=== PATIENT | female | born 1965 | race Caucasian/White ===

== ENCOUNTER 2016-10-07 19:24 | Inpatient (IN) | payer MEDICARE ==
[2016-10-07] MEDS ORDERED: Zofran 4 MG/2 ML VIAL IV ONE (19:57)
[2016-10-07] MEDS ORDERED: Hydromorphone 1 mg/ml Ampule IV ONE (20:00)
[2016-10-07] MEDS ORDERED: Sodium Chloride 0.9% 1000 ML 1,000 ML IV STA (20:01)
[2016-10-07] MEDS ORDERED: PROTONIX 40 MG IV IV ONE ×2 (20:01→20:10)
[2016-10-07] MEDS ORDERED: Hydromorphone 1 mg/ml Ampule ONE (20:05)
[2016-10-07] MEDS ORDERED: Zofran 4 MG/2 ML VIAL ONE (20:05)
[2016-10-07] MEDS ORDERED: Sodium Chloride 0.9% 1000 ML 1,000 ML ONE (20:10)
[2016-10-07 20:29] LABS: BASOPHIL % 0.2 % (0.0-0.4); Eosinophil % 1.1 % (0.00-5.0); Granulocytes % 78.9 % (36.0-66.0); Lymphocytes % 14.8 % (24.0-44.0); Mean Cell Volume 95.2 fl (78-100); Mean Corpuscular Hemoglobin 31.9 pg (26-32); Mean Platelet Volume 10.1 fl (6-9.5); Platelet Count 305 K/mm3 (150-450); Red Blood Count 5.17 M/mm3 (4.1-5.4)
[2016-10-07 20:57] LABS: ALBUMIN 4.6 g/dL (3.4-5.0); ALKALINE PHOSPHATASE 99 U/L (46-116); ANION GAP 14.5 MEQ/L (5-15); BILIRUBIN,TOTAL 0.4 mg/dL (0.2-1.0); BLOOD UREA NITROGEN 13 mg/dL (9-20); CHLORIDE 103 mEq/L (98-107); Carbon Dioxide 26.5 mEq/L (21-32); Glucose 112 MG/DL (70-110); LIPASE 189 U/L (73-393); Potassium 3.8 mEq/L (3.5-5.1); SGOT/AST 24 U/L (15-37); SGPT/ALT 15 U/L (12-78); SODIUM 140 mEq/L (136-145); Total Protein 8.4 gm/dL (6.4-8.2)
--- NOTE | 2016-10-07 22:03 | ERPHSYRPT ---
- History of Present Illness Time Seen by Provider: 10/07/16 19:30 Historian: patient, family Exam Limitations: no limitations Patient Subjective Stated Complaint: pt states she ate chicken nuggets at [facility] and has been having pain and vomiting since Triage Nursing Assessment: pt alert and oriented, answers questions approp. pt ambulatory with steady gait noted. respirations nonlabored with lungs cta. skin pink warm and dry. pt very restless in bed. abd soft and tender. bowel sounds present in all 4 quads. Physician History: No bowel movement reported x 3 days. Last meal was at [facility] 1200, then given a bottle of Mg Citrate-like drink at 1600. NPO since. Timing/Duration: hour(s) (7.5 ) Activities at Onset: other (ate at [facility] prior to Sx onset) Quality: cramping, sharpness Abdominal Pain Onset Location: periumbilical Pain Radiation: other (diffuse) Severity of Pain-Max: severe Severity of Pain-Current: severe Modifying Factors: Improves With: vomiting Previous symptoms: no prior history Allergies/Adverse Reactions: morphine Adverse Reaction (Verified 10/07/16 19:47) Nausea Home Medications: Duloxetine HCl [Cymbalta] 90 mg PO DAILY 10/07/16 [History] Tapentadol HCl [Nucynta ER] 250 mg PO BID 10/07/16 [History] Tizanidine HCl 4 mg [Zanaflex 4 MG] 4 mg PO BID 10/07/16 [History] Topiramate 100 mg [Topamax 100 MG] 100 mg PO BID 10/07/16 [History] Hx Tetanus, Diphtheria Vaccination/Date Given: No ([place]) Hx Influenza Vaccination/Date Given: No Hx Pneumococcal Vaccination/Date Given: No Immunizations Up to Date: No - Review of Systems Constitutional: No Symptoms Eyes: No Symptoms Ears, Nose, & Throat: No Symptoms Respiratory: No Symptoms Cardiac: No Symptoms Abdominal/Gastrointestinal: Abdominal Pain, Nausea, Vomiting, No Diarrhea Genitourinary Symptoms: No Symptoms Musculoskeletal: No Symptoms Skin: No Symptoms Neurological: No Symptoms Psychological: No Symptoms Endocrine: No Symptoms Hematologic/Lymphatic: No Symptoms - Past Medical History Pertinent Past Medical History: Yes Neurological History: Migraines Psycho-Social History: Depression Female Reproductive Disorders: Cervical Cancer - Past Surgical History Past Surgical History: Yes Gastrointestinal: Appendectomy, Cholecystectomy Female Surgical History: Hysterectomy - Social History Smoking Status: Current every day smoker How long have you smoked: 32 Exposure to second hand smoke: No Drug Use: none Patient Lives Alone: No - Female History Hx Last Menstrual Period: hyster - Nursing Vital Signs Nursing Vital Signs: Initial Vital Signs Temperature 97.2 F Temperature Source Oral Pulse Rate 74 Respiratory Rate 24 Blood Pressure [Right Arm] 132/96 Pain Intensity 10 - Physical Exam General Appearance: severe distress Eye Exam: eyes nml inspection Ears, Nose, Throat Exam: normal ENT inspection, pharynx normal Neck Exam: normal inspection, non-tender, supple, full range of motion Respiratory Exam: normal breath sounds, lungs clear, airway intact Cardiovascular Exam: regular rate/rhythm, normal heart sounds, normal peripheral pulses Gastrointestinal/Abdomen Exam: soft, normal bowel sounds, tenderness (diffuse), No distention Back Exam: normal inspection, normal range of motion Extremity Exam: normal inspection, normal range of motion, pelvis stable Neurologic Exam: alert, oriented x 3, cooperative Skin Exam: normal color, warm, dry SpO2 Interpretation: normal SpO2: 100 Oxygen Delivery: Room Air - Course Nursing assessment & vital signs reviewed: Yes - CT Exams Abdomen/Pelvis CT Interpretation: Discussed w/radiologist, Tele-radiologist Report (Findings compatible with SBO with bowel loops measuring up to 4 cm. Transition point in mid lower abd associated with twisting mesentery compatible with [id number] loop SBO.) Ordered Tests: Active Orders 24 hr Category Date Time Status IV Insertion STAT Care 10/07/16 20:01 Active NPO (ED) STAT Care 10/07/16 20:01 Active ABDOMEN AND PELVIS W CONTRAST [CT] Stat Exams 10/07/16 20:02 Taken CBC W DIFF Stat Lab 10/07/16 20:10 Completed CMP Stat Lab 10/07/16 20:10 Completed LIPASE Stat Lab 10/07/16 20:10 Completed Urine Triage Profile Stat Lab 10/07/16 20:01 Uncollected Medication Summary Discontinued Medications Generic Name Dose Route Start Last Admin Trade Name Freq PRN Reason Stop Dose Admin Hydromorphone HCl 1 mg 10/07/16 20:00 10/07/16 20:06 Hydromorphone 1 Mg/Ml Ampule IV 10/07/16 20:01 1 mg STAT ONE Administration Hydromorphone HCl Confirm 10/07/16 20:05 Hydromorphone 1 Mg/Ml Ampule Administered 10/07/16 20:06 Dose 1 mg .ROUTE .STK-MED ONE Sodium Chloride 1,000 mls @ 999 mls/hr 10/07/16 20:01 10/07/16 20:11 Sodium Chloride 0.9% 1000 Ml IV 10/07/16 21:01 999 mls/hr .Q1H1M STA Administration Sodium Chloride Confirm 10/07/16 20:10 Sodium Chloride 0.9% 1000 Ml Administered 10/07/16 20:11 Dose 1,000 mls @ ud .ROUTE .STK-MED ONE Ondansetron HCl 4 mg 10/07/16 19:57 10/07/16 20:06 Zofran 4 Mg/2 Ml Vial IV 10/07/16 19:58 4 mg STAT ONE Administration Ondansetron HCl Confirm 10/07/16 20:05 Zofran 4 Mg/2 Ml Vial Administered 10/07/16 20:06 Dose 4 mg .ROUTE .STK-MED ONE Pantoprazole Sodium 40 mg 10/07/16 20:01 10/07/16 20:14 Protonix 40 Mg Iv IV 10/07/16 20:02 40 mg STAT ONE Administration Pantoprazole Sodium Confirm 10/07/16 20:10 Protonix 40 Mg Iv Administered 10/07/16 20:11 Dose 40 mg IV .STK-MED ONE Lab/Rad Data: Laboratory Result Diagrams 10/07/16 20:10 10/07/16 20:10 Laboratory Results 10/07/16 10/07/16 Range/Units 20:10 20:10 WBC 14.0 H (4.0-10.5) K/mm3 RBC 5.17 (4.1-5.4) M/mm3 Hgb 16.5 H (12.0-16.0) gm/dl Hct 49.2 H (35-47) % MCV 95.2 (78-100) fl MCH 31.9 (26-32) pg MCHC 33.5 (32-36) g/dl RDW 13.0 (11.5-14.0) % Plt Count 305 (150-450) K/mm3 MPV 10.1 H (6-9.5) fl Gran % 78.9 H (36.0-66.0) % Lymphocytes % 14.8 L (24.0-44.0) % Monocytes % 5.0 (0.0-12.0) % Eosinophils % 1.1 (0.00-5.0) % Basophils % 0.2 (0.0-0.4) % Basophils # 0.03 (0-0.4) Sodium 140 (136-145) mEq/L Potassium 3.8 (3.5-5.1) mEq/L Chloride 103 (98-107) mEq/L Carbon Dioxide 26.5 (21-32) mEq/L Anion Gap 14.5 (5-15) MEQ/L BUN 13 (9-20) mg/dL Creatinine 0.85 (0.55-1.30) mg/dl Estimated GFR > 60 ML/MIN Glucose 112 H (70-110) MG/DL Calcium 10.2 H (8.5-10.1) mg/dL Total Bilirubin 0.4 (0.2-1.0) mg/dL AST 24 (15-37) U/L ALT 15 (12-78) U/L Alkaline Phosphatase 99 (46-116) U/L Serum Total Protein 8.4 H (6.4-8.2) gm/dL Albumin 4.6 (3.4-5.0) g/dL Lipase 189 (73-393) U/L - Progress Progress: pain not gone completely Discussed with : Nestor (with recs for NG and admit to medicine), Olena ( accepts to floor.) Will see patient in: hospital (full admit) Counseled pt/family regarding: lab results, diagnosis, need for follow-up, rad results - Departure Time of Disposition: 22:15 Departure Disposition: In-patient Admission Clinical Impression: Small bowel obstruction Condition: Stable Critical Care Time: Yes Critical Care Time(excluding separately billable procedures): 30-74 minutes
[2016-10-08] MEDS: Sodium Chloride 0.9% W/ 20 mEq KCl/LITER 1,000 ML IV SCH ×3 (00:53→22:23)
[2016-10-08] MEDS: DILAUDID 2 MG INJECTION IV PRN (00:56)
[2016-10-08] MEDS: Zofran 4 MG/2 ML VIAL IV PRN ×2 (06:03→11:36)
[2016-10-08] MEDS ORDERED: Phenergan 25 MG INJ IV PRN (07:46)
[2016-10-08] MEDS ORDERED: Phenergan 25 MG INJ IM PRN (07:47)
[2016-10-08] MEDS: PROTONIX 40 MG IV IV SCH (08:04)
--- NOTE | 2016-10-08 09:16 | XRAY ---
Indication: Lower abdominal pain, nausea, vomiting, and elevated WBC. Multiple contiguous axial images obtained through the abdomen and pelvis using 80 cc Isovue 370 contrast only. Comparison: None Lung bases essentially clear. Heart is not enlarged. Stomach and small bowel loops are moderately fluid distended with fluid leveling to the level of the lower mid abdomen with some twisting of the mesentery. Small bowel distention up to 4 cm. The more distal small bowel loops appear decompressed with normal colonic bowel gas. Findings favor partial small bowel obstruction. No free fluid/air. Previous cholecystectomy. Remaining liver, pancreas, spleen, adrenal glands, kidneys, ureters, and bladder appear unremarkable. Minimal aortoiliac calcifications. No AAA or pathologic retroperitoneal lymphadenopathy. Osseous structures intact with minimal lumbar degenerative changes. Old left 11th/12th rib fractures. Impression: CT findings as detailed favoring partial distal small bowel obstruction. Comment: Preliminary interpretation was made by [facility]. No discrepancy. CT DI 11.96
--- NOTE | 2016-10-08 09:18 | XRAY ---
Indication: NG tube placement. Comparison: None KUB centered at the thoracolumbar level demonstrates NG tube tip in the left upper quadrant abdomen presumed in the stomach.
[2016-10-08 11:25] LABS: Mean Cell Volume 97.3 fl (78-100); Mean Platelet Volume 9.4 fl (6-9.5); Platelet Count 278 K/mm3 (150-450); Red Blood Count 4.47 M/mm3 (4.1-5.4); White Blood Count 9.2 K/mm3 (4.0-10.5)
[2016-10-08 12:35] LABS: Mean Cell Volume 97.8 fl (78-100); Mean Corpuscular Hemoglobin 31.8 pg (26-32); Mean Platelet Volume 9.5 fl (6-9.5); Platelet Count 280 K/mm3 (150-450); Red Blood Count 4.49 M/mm3 (4.1-5.4); Red Cell Distribution Width 13.1 % (11.5-14.0); White Blood Count 9.1 K/mm3 (4.0-10.5)
[2016-10-08 12:36] LABS: ANION GAP 12.1 MEQ/L (5-15); BLOOD UREA NITROGEN 10 mg/dL (9-20); CHLORIDE 108 mEq/L (98-107); Carbon Dioxide 26.4 mEq/L (21-32); Glucose 121 MG/DL (70-110); Potassium 4.2 mEq/L (3.5-5.1); SODIUM 142 mEq/L (136-145)
--- NOTE | 2016-10-08 13:16 | XRAY ---
Indication: Follow-up NG tube placement for small bowel obstruction. Comparison: KUB performed earlier in the day. 2 views of the abdomen again demonstrates NG tube tip in the stomach. There are a few asynchronous small bowel air-fluid leveling in the left midabdomen with distal rectal bowel gas favoring known partial obstruction. No free air. Large amount of contrast in the urinary bladder from recent CT study. Stable cholecystectomy clips and right lung base calcified granuloma. Impression: Midabdomen asynchronous small bowel air-fluid leveling with distal colonic bowel gas favoring known partial obstruction. Stable NG tube tip in the stomach.
[2016-10-08 13:36] LABS: ANION GAP 12.3 MEQ/L (5-15); BLOOD UREA NITROGEN 10 mg/dL (9-20); CHLORIDE 108 mEq/L (98-107); Carbon Dioxide 26.5 mEq/L (21-32); Glucose 121 MG/DL (70-110); Potassium 4.3 mEq/L (3.5-5.1); SODIUM 143 mEq/L (136-145)
[2016-10-09 06:03] LABS: Mean Cell Volume 99.7 fl (78-100); Mean Corpuscular Hemoglobin 32.3 pg (26-32); Mean Platelet Volume 9.4 fl (6-9.5); Platelet Count 267 K/mm3 (150-450); Red Blood Count 3.99 M/mm3 (4.1-5.4); Red Cell Distribution Width 13.3 % (11.5-14.0)
[2016-10-09 06:23] LABS: ANION GAP 12.8 MEQ/L (5-15); BLOOD UREA NITROGEN 14 mg/dL (9-20); CHLORIDE 113 mEq/L (98-107); Carbon Dioxide 24.2 mEq/L (21-32); Glucose 86 MG/DL (70-110); Potassium 4.5 mEq/L (3.5-5.1); SODIUM 146 mEq/L (136-145)
[2016-10-09] MEDS: Sodium Chloride 0.9% W/ 20 mEq KCl/LITER 1,000 ML IV SCH ×2 (07:21→16:28)
--- NOTE | 2016-10-09 08:07 | CONS ---
CONSULT DATE: 10/08/2016 HISTORY: This is a 51 year-old female who presented to the emergency room with abdominal pain. My partner was consulted for this and I am seeing the patient for him today. The patient has some nausea and vomiting. She has had decreased bowel function. She did not pass gas today. She did have a bowel movement three days ago but she did not have a bowel movement today. She states her abdominal pain is more severe in her upper abdomen and occasionally she had some back pain but she does have chronic back pain at baseline. She has been nauseous and vomiting bilious fluid. She had a NG overnight very briefly only for about 20 minutes and then she said it fell out and she did not want it put back in so she does not have a NG at this moment. Currently she is not vomiting but she did vomit earlier this morning. PAST MEDICAL HISTORY: Chronic neck and back pain. PAST SURGICAL HISTORY: Hysterectomy, appendectomy, cholecystectomy, neck surgery. MEDICATIONS: Topiramate, tizanidine, Nucynta, Cymbalta. ALLERGIES: NKDA. SOCIAL HISTORY: Positive tobacco use. No alcohol use. FAMILY HISTORY: Mom had an unknown cancer. PHYSICAL EXAMINATION: Vital signs are all stable. She is afebrile. Her heart rate is normal. GENERAL: No acute distress. CVS: Regular rate and rhythm. PULMONARY: Non-labored respirations. ABDOMEN: Soft, very minimally distended, tender to palpation left upper quadrant and mid abdomen. She is not tender in her right lower quadrant at all and she is not tender in her right upper quadrant at all. There is no rebound. There is no guarding. EXTREMITIES: Normal. LAB DATA AND TESTS: White blood cell count is elevated at 14, hemoglobin 16.5, PLT count 305,000 and creatinine 0.85. Bilirubin, liver function tests and lipase are within normal limits. CT scan showed concern for a partial small bowel obstruction with distal bowel decompression and proximal bowel dilation. There is no free air. Abdominal x-ray from earlier this morning showed good placement of the NG tube but this has fallen out. ASSESSMENT AND PLAN: This is a 51 year-old female who has been admitted for partial small bowel obstruction, abdominal pain, nausea and vomiting. At this time she really has not had a good trial of conservative treatments because her NG tube fell out very soon after it was placed. I did discuss with the patient the importance of placing an NG tube because many people with bowel obstructions can be treated conservatively and can have quite significant improvement. She has agreed and we will plan to place an NG tube right now and we will keep it to low intermittent suction, recheck her abdominal x-ray as well. She has not had labs during the day today and so we will repeat her laboratory studies today and follow the trend and repeat them as well in the morning. We will re-evaluate her clinically in the morning. I did discuss with her should her symptoms worsen she may need to have surgery sooner. Otherwise, we will continue to try conservative treatment with IV fluids, NG tube and bowel rest. I did discuss the case with my partner as well. Thank you for the consultation.
[2016-10-09] MEDS: PROTONIX 40 MG IV IV SCH (08:24)
--- NOTE | 2016-10-09 08:29 | PCM.HP ---
History of Present Illness - Chief Complaint Chief Complaint: c/o abdominal pain for 1 day Date: 10/08/16 History of Present Illness: is a 51 year old female.started having abdominal pain since last evening. no fever, c/o nausea, vomiting - Review of Systems Constitutional: No Fever, No Chills Eyes: No Symptoms Ears, Nose, & Throat: No Symptoms Respiratory: No Cough, No Short Of Breath Cardiac: No Chest Pain, No Edema, No Syncope Abdominal/Gastrointestinal: Abdominal Pain, Nausea, Vomiting, No Diarrhea Genitourinary Symptoms: No Dysuria Musculoskeletal: No Back Pain, No Neck Pain Skin: No Rash Neurological: No Dizziness, No Focal Weakness, No Sensory Changes Psychological: No Symptoms Endocrine: No Symptoms Hematologic/Lymphatic: No Symptoms Immunological/Allergic: No Symptoms Medications & Allergies Home Medications: Home Medication List Duloxetine HCl [Cymbalta] 90 mg PO DAILY 10/07/16 [History Confirmed 10/07/16] Tapentadol HCl [Nucynta ER] 250 mg PO BID 10/07/16 [History Confirmed 10/07/16] Tizanidine HCl 4 mg [Zanaflex 4 MG] 4 mg PO BID 10/07/16 [History Confirmed 10/07/16] Topiramate 100 mg [Topamax 100 MG] 100 mg PO BID 10/07/16 [History Confirmed 10/07/16] Allergies/Adverse Reactions: Allergies Allergy/AdvReac Type Severity Reaction Status Date / Time morphine AdvReac Nausea Verified 10/07/16 19:47 - Past Medical History Past Medical History: Yes Neurological History: Migraines ENT History: No Pertinent History Cardiac History: No Pertinent History Respiratory History: No Pertinent History Endocrine Medical History: No Pertinent History Musculoskelatal History: No Pertinent History GI Medical History: No Pertinent History History: No Pertinent History Pyscho-Social History: Depression Reproductive Disorders: Cervical Cancer - Female History Hx Last Menstrual Period: hyster Are you now?: No - Past Surgical History Past Surgical History: Yes Neuro Surgical History: No Pertinent History GI Surgical History: Appendectomy, Cholecystectomy Musculskeletal Surgical Hx: Other Female Surgical History: Hysterectomy Other Surgical History: neck surgery - Social History Smoking Status: Current every day smoker How long have you smoked: 32 Exposure to second hand smoke: Yes Alcohol: None Drug Use: none - Physical Exam Vital Signs: Vital Signs - 24 hr Temp Pulse Resp BP Pulse Ox 10/09/16 08:00 99.4 F 74 18 109/59 94 L 10/09/16 04:00 98.8 F 71 13 117/60 93 L 10/09/16 00:00 98.1 F 56 L 13 111/67 96 10/08/16 20:00 99.3 F 77 14 113/64 95 10/08/16 16:00 98.6 F 68 18 111/64 96 10/08/16 11:54 98.6 F 68 18 123/70 96 General Appearance: no apparent distress, alert Neurologic Exam: alert, oriented x 3, cooperative, normal mood/affect, nml cerebellar function, nml station & gait, sensation nml, No motor deficits Eye Exam: PERRL/EOMI, eyes nml inspection Ears, Nose, Throat Exam: normal ENT inspection, TMs normal, pharynx normal, moist mucous membranes Neck Exam: normal inspection, non-tender, supple, full range of motion Respiratory Exam: normal breath sounds, lungs clear, No respiratory distress Cardiovascular Exam: regular rate/rhythm, normal heart sounds, normal peripheral pulses Gastrointestinal/Abdomen Exam: tenderness, distention, guarding, No mass Back Exam: normal inspection, normal range of motion, No CVA tenderness, No vertebral tenderness Extremity Exam: normal inspection, normal range of motion, pelvis stable Skin Exam: normal color, warm, dry, No rash Lymphatic Exam: No adenopathy Results - Labs Lab/Micro Results: Lab Results-Last 24 Hours 10/08/16 10/08/16 10/08/16 Range/Units 11:22 11:22 12:00 WBC 9.2 9.1 (4.0-10.5) K/mm3 RBC 4.47 4.49 (4.1-5.4) M/mm3 Hgb 14.3 14.3 (12.0-16.0) gm/dl Hct 43.5 43.9 (35-47) % MCV 97.3 97.8 (78-100) fl MCH 32.0 31.8 (26-32) pg MCHC 32.9 32.6 (32-36) g/dl RDW 13.0 13.1 (11.5-14.0) % Plt Count 278 280 (150-450) K/mm3 MPV 9.4 9.5 (6-9.5) fl Sodium 143 (136-145) mEq/L Potassium 4.3 (3.5-5.1) mEq/L Chloride 108 H (98-107) mEq/L Carbon Dioxide 26.5 (21-32) mEq/L Anion Gap 12.3 (5-15) MEQ/L BUN 10 (9-20) mg/dL Creatinine 0.79 (0.55-1.30) mg/dl Estimated GFR > 60 ML/MIN Glucose 121 H (70-110) MG/DL Calcium 9.1 (8.5-10.1) mg/dL 10/08/16 10/09/16 10/09/16 Range/Units 12:00 05:50 05:50 WBC 14.0 H (4.0-10.5) K/mm3 RBC 3.99 L (4.1-5.4) M/mm3 Hgb 12.9 (12.0-16.0) gm/dl Hct 39.8 (35-47) % MCV 99.7 (78-100) fl MCH 32.3 H (26-32) pg MCHC 32.4 (32-36) g/dl RDW 13.3 (11.5-14.0) % Plt Count 267 (150-450) K/mm3 MPV 9.4 (6-9.5) fl Sodium 142 146 H (136-145) mEq/L Potassium 4.2 4.5 (3.5-5.1) mEq/L Chloride 108 H 113 H (98-107) mEq/L Carbon Dioxide 26.4 24.2 (21-32) mEq/L Anion Gap 12.1 12.8 (5-15) MEQ/L BUN 10 14 (9-20) mg/dL Creatinine 0.77 0.73 (0.55-1.30) mg/dl Estimated GFR > 60 > 60 ML/MIN Glucose 121 H 86 (70-110) MG/DL Calcium 9.0 8.5 (8.5-10.1) mg/dL - Radiology Impressions Radiology Exams & Impressions: Radiology Procedures Category Date Time Status ABDOMEN 2 VIEW Routine Exams 10/08/16 12:30 Completed KUB Urgent Exams 10/08/16 01:20 Completed Assessment/Plan (1) Abdominal pain Current Visit: Yes Status: Acute Code(s): R10.9 - UNSPECIFIED ABDOMINAL PAIN (2) Small bowel obstruction Current Visit: Yes Status: Acute Code(s): K56.69 - OTHER INTESTINAL OBSTRUCTION (3) Vomiting Current Visit: Yes Status: Acute Code(s): R11.10 - VOMITING, UNSPECIFIED
[2016-10-09] MEDS ORDERED: CHLORASEPTIC SPRAY 180 ML PO PRN (08:30)
--- NOTE | 2016-10-09 08:31 | PCM.NOTE ---
Date and Time: 10/09/16829 Subjective Assessment: doing better - Review of Systems Constitutional: No Fever, No Chills Eyes: No Symptoms Ears, Nose, & Throat: No Symptoms Respiratory: No Cough, No Short Of Breath Cardiac: No Chest Pain, No Edema, No Syncope Abdominal/Gastrointestinal: Abdominal Pain, Nausea, Diarrhea, No Vomiting Genitourinary Symptoms: No Dysuria Musculoskeletal: No Back Pain, No Neck Pain Skin: No Rash Neurological: No Dizziness, No Focal Weakness, No Sensory Changes Psychological: No Symptoms Endocrine: No Symptoms Hematologic/Lymphatic: No Symptoms Immunological/Allergic: No Symptoms Objective Exam General Appearance: no apparent distress, alert Neurologic Exam: alert, oriented x 3, cooperative, normal mood/affect, nml cerebellar function, sensation nml, No motor deficits Skin Exam: normal color, warm, dry Eye Exam: PERRL, EOMI, eyes nml inspection Ears, Nose, Throat Exam: normal ENT inspection, pharynx normal, moist mucous membranes Neck Exam: normal inspection, non-tender, supple, full range of motion Respiratory Exam: normal breath sounds, lungs clear, No respiratory distress Cardiovascular Exam: regular rate/rhythm, normal heart sounds Gastrointestinal/Abdomen Exam: distention, No tenderness, No mass, No rebound Extremity Exam: normal inspection, normal range of motion Back Exam: normal inspection, normal range of motion, No CVA tenderness, No vertebral tenderness Pelvic Exam: deferred Rectal Exam: deferred OBJECTIVE DATA Vital Signs: Vital Signs - 24 hr Temp Pulse Resp BP Pulse Ox 10/09/16 08:00 99.4 F 74 18 109/59 94 L 10/09/16 04:00 98.8 F 71 13 117/60 93 L 10/09/16 00:00 98.1 F 56 L 13 111/67 96 10/08/16 20:00 99.3 F 77 14 113/64 95 10/08/16 16:00 98.6 F 68 18 111/64 96 10/08/16 11:54 98.6 F 68 18 123/70 96 Pain Assessment - Last Documented Pain Intensity 9 Pain Scale Used [facility] Intake and Output: Intake & Output 10/06/16 10/07/16 10/08/16 10/09/16 11:59 11:59 11:59 11:59 Intake Total 2207 Output Total 1000 2000 Balance -1000 207 Weight 52.844 kg Lab Results: Lab Results-Last 24 Hours 10/08/16 10/08/16 10/08/16 Range/Units 11:22 11:22 12:00 WBC 9.2 9.1 (4.0-10.5) K/mm3 RBC 4.47 4.49 (4.1-5.4) M/mm3 Hgb 14.3 14.3 (12.0-16.0) gm/dl Hct 43.5 43.9 (35-47) % MCV 97.3 97.8 (78-100) fl MCH 32.0 31.8 (26-32) pg MCHC 32.9 32.6 (32-36) g/dl RDW 13.0 13.1 (11.5-14.0) % Plt Count 278 280 (150-450) K/mm3 MPV 9.4 9.5 (6-9.5) fl Sodium 143 (136-145) mEq/L Potassium 4.3 (3.5-5.1) mEq/L Chloride 108 H (98-107) mEq/L Carbon Dioxide 26.5 (21-32) mEq/L Anion Gap 12.3 (5-15) MEQ/L BUN 10 (9-20) mg/dL Creatinine 0.79 (0.55-1.30) mg/dl Estimated GFR > 60 ML/MIN Glucose 121 H (70-110) MG/DL Calcium 9.1 (8.5-10.1) mg/dL 10/08/16 10/09/16 10/09/16 Range/Units 12:00 05:50 05:50 WBC 14.0 H (4.0-10.5) K/mm3 RBC 3.99 L (4.1-5.4) M/mm3 Hgb 12.9 (12.0-16.0) gm/dl Hct 39.8 (35-47) % MCV 99.7 (78-100) fl MCH 32.3 H (26-32) pg MCHC 32.4 (32-36) g/dl RDW 13.3 (11.5-14.0) % Plt Count 267 (150-450) K/mm3 MPV 9.4 (6-9.5) fl Sodium 142 146 H (136-145) mEq/L Potassium 4.2 4.5 (3.5-5.1) mEq/L Chloride 108 H 113 H (98-107) mEq/L Carbon Dioxide 26.4 24.2 (21-32) mEq/L Anion Gap 12.1 12.8 (5-15) MEQ/L BUN 10 14 (9-20) mg/dL Creatinine 0.77 0.73 (0.55-1.30) mg/dl Estimated GFR > 60 > 60 ML/MIN Glucose 121 H 86 (70-110) MG/DL Calcium 9.0 8.5 (8.5-10.1) mg/dL Radiology Exams: Radiology Procedures Category Date Time Status ABDOMEN 2 VIEW Routine Exams 10/08/16 12:30 Completed KUB Urgent Exams 10/08/16 01:20 Completed Assessment/Plan (1) Abdominal pain Current Visit: Yes Status: Acute Qualifiers: Abdominal location: generalized Qualified Code(s): R10.84 - Generalized abdominal pain Code(s): R10.9 - UNSPECIFIED ABDOMINAL PAIN (2) Small bowel obstruction Current Visit: Yes Status: Acute Code(s): K56.69 - OTHER INTESTINAL OBSTRUCTION (3) Vomiting Current Visit: Yes Status: Acute Qualifiers: Vomiting type: unspecified Vomiting Intractability: unspecified Nausea presence: unspecified Qualified Code(s): R11.10 - Vomiting, unspecified Code(s): R11.10 - VOMITING, UNSPECIFIED
[2016-10-09] MEDS: DILAUDID 2 MG INJECTION IV PRN ×2 (16:40→23:28)
[2016-10-10] MEDS: Sodium Chloride 0.9% W/ 20 mEq KCl/LITER 1,000 ML IV SCH ×2 (01:39→12:42)
[2016-10-10] MEDS: PROTONIX 40 MG IV IV SCH (09:11)
[2016-10-10] MEDS: DILAUDID 2 MG INJECTION IV PRN (13:44)
[2016-10-11] MEDS: Sodium Chloride 0.9% W/ 20 mEq KCl/LITER 1,000 ML IV SCH (00:05)
[2016-10-11] MEDS: DILAUDID 2 MG INJECTION IV PRN ×3 (01:03→22:51)
[2016-10-11 05:35] LABS: Mean Cell Volume 96.1 fl (78-100); Mean Platelet Volume 9.5 fl (6-9.5); Platelet Count 238 K/mm3 (150-450); Red Blood Count 3.88 M/mm3 (4.1-5.4); Red Cell Distribution Width 12.1 % (11.5-14.0); White Blood Count 11.2 K/mm3 (4.0-10.5)
[2016-10-11 05:49] LABS: Mean Corpuscular Hemoglobin 31.9 pg (26-32)
[2016-10-11 05:54] LABS: ANION GAP 16.6 MEQ/L (5-15); BLOOD UREA NITROGEN 8 mg/dL (9-20); CHLORIDE 103 mEq/L (98-107); Carbon Dioxide 21.6 mEq/L (21-32); Glucose 56 MG/DL (70-110); Potassium 4.1 mEq/L (3.5-5.1); SODIUM 137 mEq/L (136-145)
[2016-10-11] MEDS: DEXTROSE 5% -NACL 0.9% 1000 ML + KCl 20 MEQ 1,000 ML IV SCH ×3 (06:33→20:27)
--- NOTE | 2016-10-11 08:11 | PCM.NOTE ---
Date and Time: 10/11/16809 Subjective Assessment: doing little better - Review of Systems Constitutional: No Fever, No Chills Eyes: No Symptoms Ears, Nose, & Throat: No Symptoms Respiratory: No Cough, No Short Of Breath Cardiac: No Chest Pain, No Edema, No Syncope Abdominal/Gastrointestinal: Abdominal Pain, No Nausea, No Vomiting, No Diarrhea Genitourinary Symptoms: No Dysuria Musculoskeletal: No Back Pain, No Neck Pain Skin: No Rash Neurological: No Dizziness, No Focal Weakness, No Sensory Changes Psychological: No Symptoms Endocrine: No Symptoms Hematologic/Lymphatic: No Symptoms Immunological/Allergic: No Symptoms Objective Exam General Appearance: no apparent distress, alert Neurologic Exam: alert, oriented x 3, cooperative, normal mood/affect, nml cerebellar function, sensation nml, No motor deficits Skin Exam: normal color, warm, dry Eye Exam: PERRL, EOMI, eyes nml inspection Ears, Nose, Throat Exam: normal ENT inspection, pharynx normal, moist mucous membranes Neck Exam: normal inspection, non-tender, supple, full range of motion Respiratory Exam: normal breath sounds, lungs clear, No respiratory distress Cardiovascular Exam: regular rate/rhythm, normal heart sounds Gastrointestinal/Abdomen Exam: soft, No normal bowel sounds, No tenderness, No distention, No mass Extremity Exam: normal inspection, normal range of motion Back Exam: normal inspection, normal range of motion, No CVA tenderness, No vertebral tenderness Pelvic Exam: deferred Rectal Exam: deferred OBJECTIVE DATA Vital Signs: Vital Signs - 24 hr Temp Pulse Resp BP BP Pulse Ox 10/11/16 04:00 98.4 F 76 16 118/62 98 10/10/16 23:55 99.1 F 67 14 129/67 98 10/10/16 19:58 99.3 F 79 16 120/65 97 10/10/16 17:33 98.4 F 74 18 122/63 94 L 10/10/16 15:45 98.4 F 74 18 122/63 94 L 10/10/16 12:00 98.1 F 75 17 121/63 94 L Pain Assessment - Last Documented Pain Intensity 4 Pain Scale Used 0-10 Pain Scale Intake and Output: Intake & Output 10/08/16 10/09/16 10/10/16 10/11/16 11:59 11:59 11:59 11:59 Intake Total 2207 2218 2461 Output Total 1000 1999 700 1200 Balance -3253 763 1686 1261 Weight 52.844 kg 52.844 kg 52.844 kg Lab Results: Lab Results-Last 24 Hours 10/11/16 10/11/16 Range/Units 05:18 05:18 WBC 11.2 H (4.0-10.5) K/mm3 RBC 3.88 L (4.1-5.4) M/mm3 Hgb 12.4 (12.0-16.0) gm/dl Hct 37.3 (35-47) % MCV 96.1 (78-100) fl MCH 31.9 (26-32) pg MCHC 33.2 (32-36) g/dl RDW 12.1 (11.5-14.0) % Plt Count 238 (150-450) K/mm3 MPV 9.5 (6-9.5) fl Sodium 137 (136-145) mEq/L Potassium 4.1 (3.5-5.1) mEq/L Chloride 103 (98-107) mEq/L Carbon Dioxide 21.6 (21-32) mEq/L Anion Gap 16.6 H (5-15) MEQ/L BUN 8 L (9-20) mg/dL Creatinine 0.63 (0.55-1.30) mg/dl Estimated GFR > 60 ML/MIN Glucose 56 L (70-110) MG/DL Calcium 8.3 L (8.5-10.1) mg/dL Radiology Exams: Radiology Procedures Category Date Time Status ABDOMEN 2 VIEW Routine Exams 10/11/16 08:00 Ordered Multi-Disciplinary Progress Notes: Multi-Disciplinary Progress Notes 10/10/16 09:25 (created 10/10/16 11:06) Case Management Note by Rosaura Ding REVIEWED DISCHARGE PLAN. CONTINUES TO PLAN TO RETURN HOME TO PRE EPISODIC LEVEL OF [facility]. INDEPENDENT WITH ALL ADL'S. DECLINED ADDNL NEEDS. WILL CONTINUE TO FOLLOW AND ASSESS FOR ALL DC NEEDS. Initialized on 10/10/16 11:06 - END OF NOTE Assessment/Plan (1) Abdominal pain Current Visit: Yes Status: Acute Qualifiers: Abdominal location: generalized Qualified Code(s): R10.84 - Generalized abdominal pain Code(s): R10.9 - UNSPECIFIED ABDOMINAL PAIN (2) Small bowel obstruction Current Visit: Yes Status: Acute Code(s): K56.69 - OTHER INTESTINAL OBSTRUCTION (3) Vomiting Current Visit: Yes Status: Acute Qualifiers: Vomiting type: unspecified Vomiting Intractability: unspecified Nausea presence: unspecified Qualified Code(s): R11.10 - Vomiting, unspecified Code(s): R11.10 - VOMITING, UNSPECIFIED
--- NOTE | 2016-10-11 08:46 | XRAY ---
Indication: Possible small bowel obstruction. Comparison: October 08, 2016. 2 views of the abdomen demonstrates increasing small and large bowel gas. No focal bowel dilatation or air-fluid leveling. NG tube tip again presumably in the stomach. Stable cholecystectomy clips and right lung calcified granuloma. Remaining solid organs unremarkable. Impression: Interval increasing diffuse bowel gas today appearing nonspecific and nonobstructed again with NG tube in situ.
[2016-10-11] MEDS: PROTONIX 40 MG IV IV SCH (09:52)
[2016-10-11] MEDS ORDERED: CETACAINE SPRAY TP ONE (12:31)
[2016-10-12] MEDS: DEXTROSE 5% -NACL 0.9% 1000 ML + KCl 20 MEQ 1,000 ML IV SCH ×3 (03:46→17:51)
[2016-10-12 05:56] LABS: Mean Cell Volume 96.3 fl (78-100); Mean Corpuscular Hemoglobin 31.9 pg (26-32); Mean Platelet Volume 9.6 fl (6-9.5); Platelet Count 230 K/mm3 (150-450); Red Blood Count 3.79 M/mm3 (4.1-5.4); Red Cell Distribution Width 12.4 % (11.5-14.0); White Blood Count 9.1 K/mm3 (4.0-10.5)
[2016-10-12] MEDS: PROTONIX 40 MG IV IV SCH (08:58)
--- NOTE | 2016-10-12 11:01 | XRAY ---
Indication: Follow-up small bowel obstruction. Comparison: One day earlier. 2 views of the abdomen again nonacute nonobstructed with NG tube in situ, cholecystectomy clips, and right lung base calcified granuloma. No new/acute findings.
--- NOTE | 2016-10-12 13:16 | PCM.NOTE ---
Date and Time: 10/12/16 1314 Subjective Assessment: doing better - Review of Systems Constitutional: No Fever, No Chills Eyes: No Symptoms Ears, Nose, & Throat: No Symptoms Respiratory: No Cough, No Short Of Breath Cardiac: No Chest Pain, No Edema, No Syncope Abdominal/Gastrointestinal: Abdominal Pain, No Nausea, No Vomiting, No Diarrhea Genitourinary Symptoms: No Dysuria Musculoskeletal: No Back Pain, No Neck Pain Skin: No Rash Neurological: No Dizziness, No Focal Weakness, No Sensory Changes Psychological: No Symptoms Endocrine: No Symptoms Hematologic/Lymphatic: No Symptoms Immunological/Allergic: No Symptoms Objective Exam General Appearance: no apparent distress, alert Neurologic Exam: alert, oriented x 3, cooperative, normal mood/affect, nml cerebellar function, sensation nml, No motor deficits Skin Exam: normal color, warm, dry Eye Exam: PERRL, EOMI, eyes nml inspection Ears, Nose, Throat Exam: normal ENT inspection, pharynx normal, moist mucous membranes Neck Exam: normal inspection, non-tender, supple, full range of motion Respiratory Exam: normal breath sounds, lungs clear, No respiratory distress Cardiovascular Exam: regular rate/rhythm, normal heart sounds Gastrointestinal/Abdomen Exam: soft, No normal bowel sounds, No tenderness, No mass Extremity Exam: normal inspection, normal range of motion Back Exam: normal inspection, normal range of motion, No CVA tenderness, No vertebral tenderness Pelvic Exam: deferred Rectal Exam: deferred OBJECTIVE DATA Vital Signs: Vital Signs - 24 hr Temp Pulse Resp BP Pulse Ox 10/12/16 12:00 98.5 F 74 20 115/57 93 L 10/12/16 08:00 98.8 F 67 20 108/55 94 L 10/12/16 04:00 98.6 F 73 16 99/53 95 10/11/16 23:36 98.4 F 76 20 111/59 93 L 10/11/16 20:00 98.6 F 72 16 123/58 98 10/11/16 16:00 99 F 82 18 113/60 91 L Pain Assessment - Last Documented Pain Intensity 6 Pain Scale Used 0-10 Pain Scale Intake and Output: Intake & Output 10/10/16 10/11/16 10/12/16 10/13/16 11:59 11:59 11:59 11:59 Intake Total 2218 4531 5441 Output Total 700 1200 500 Balance 1518 1261 4800 Weight 52.844 kg 52.844 kg Lab Results: Lab Results-Last 24 Hours 10/12/16 Range/Units 05:23 WBC 9.1 (4.0-10.5) K/mm3 RBC 3.79 L (4.1-5.4) M/mm3 Hgb 12.1 (12.0-16.0) gm/dl Hct 36.5 (35-47) % MCV 96.3 (78-100) fl MCH 31.9 (26-32) pg MCHC 33.2 (32-36) g/dl RDW 12.4 (11.5-14.0) % Plt Count 230 (150-450) K/mm3 MPV 9.6 H (6-9.5) fl Radiology Exams: Radiology Procedures Category Date Time Status ABDOMEN 2 VIEW DAILY Exams 10/12/16 10:30 Completed ABDOMEN 2 VIEW DAILY Exams 10/13/16 10:30 Ordered ABDOMEN 2 VIEW DAILY Exams 10/14/16 10:30 Ordered ABDOMEN 2 VIEW Routine Exams 10/11/16 08:00 Completed Assessment/Plan (1) Abdominal pain Current Visit: Yes Status: Acute Qualifiers: Abdominal location: generalized Qualified Code(s): R10.84 - Generalized abdominal pain Code(s): R10.9 - UNSPECIFIED ABDOMINAL PAIN (2) Small bowel obstruction Current Visit: Yes Status: Acute Code(s): K56.69 - OTHER INTESTINAL OBSTRUCTION (3) Vomiting Current Visit: Yes Status: Resolved Qualifiers: Vomiting type: unspecified Vomiting Intractability: unspecified Nausea presence: unspecified Qualified Code(s): R11.10 - Vomiting, unspecified Code(s): R11.10 - VOMITING, UNSPECIFIED
[2016-10-13] MEDS ORDERED: Sodium Chloride 0.9% 10 ML FLUSH Syringe IV SCH (06:00)
[2016-10-13 07:55] VITALS: O2SAT 95
[2016-10-13] MEDS: PROTONIX 40 MG IV IV SCH (09:42)
--- NOTE | 2016-10-13 11:04 | XRAY ---
Indication: Follow-up small bowel obstruction. Comparison: One day earlier. 2 views of the demonstrates minimal scattered small/large bowel fluid leveling. No focal bowel dilatation, obstruction, or free air. Again cholecystectomy clips. NG tube has been removed. Solid organs unremarkable. Lung bases clear. Impression: Minimal scattered small/large bowel fluid leveling possibly ileus with enterocolitis not excluded in the right clinical setting.
[2016-10-13 11:42] VITALS: BP 101/58; PULSE 98
--- NOTE | 2016-10-13 11:44 | PCM.DS ---
Discharge Summary Date of Admission: 10/07/16 22:40 Admitting Physician: JAMES BAZZI Primary Care Provider: TEGAN FREGOSO Allergies Allergies morphine Adverse Reaction (Verified 10/07/16 19:47) Nausea Hospital Summary - Hospital Course Hospital Course: Chief Complaint Diagnosis c/o abdominal pain for 1 day Admission Date Date 10/08/16 Allergies Allergy/AdvReac Type Severity Reaction Status Date / Time morphine AdvReac Nausea Verified 10/07/16 19:47 Vital Signs (Last 24 hours) Temp Pulse Resp BP Pulse Ox 10/13/16 07:54 98.6 F 61 18 100/58 95 10/13/16 04:00 99.0 F 67 18 95/50 93 L 10/13/16 00:00 98.2 F 67 16 105/54 95 10/12/16 20:00 98.1 F 73 17 119/60 95 10/12/16 16:00 98.8 F 71 20 112/57 96 10/12/16 12:00 98.5 F 74 20 115/57 93 L Home Medications Medication Instructions Recorded Confirmed Last Taken Type Duloxetine HCl [Cymbalta] 90 mg PO DAILY 10/07/16 10/07/16 10/07/16 History Tapentadol HCl [Nucynta ER] 250 mg PO BID 10/07/16 10/07/16 10/07/16 History Tizanidine HCl 4 mg [Zanaflex 4 4 mg PO BID 10/07/16 10/07/16 10/07/16 History MG] Topiramate 100 mg [Topamax 100 100 mg PO BID 10/07/16 10/07/16 10/07/16 History MG] Current Medications Generic Name Dose Route Start Last Admin Trade Name Freq PRN Reason Stop Dose Admin Ondansetron HCl 4 mg 10/07/16 22:48 10/08/16 11:36 Zofran 4 Mg/2 Ml Vial IV 11/06/16 22:47 4 mg Q6H PRN PRN Administration NAUSEA/VOMITING Pantoprazole Sodium 40 mg 10/08/16 10:00 10/13/16 09:42 Protonix 40 Mg Iv IV 11/07/16 09:59 40 mg Q24H10 YEISON Administration Phenol 1 ml 10/09/16 08:30 Chloraseptic Bard 180 Ml PO 11/08/16 08:29 Q2H PRN PAIN Promethazine HCl 25 mg 10/08/16 07:46 Phenergan 25 Mg Inj IV 11/07/16 07:45 Q6H PRN PRN NAUSEA/VOMITING Promethazine HCl 25 mg 10/08/16 07:47 10/08/16 07:57 Phenergan 25 Mg Inj IM 11/07/16 07:46 25 mg Q6H/PRN PRN Administration NAUSEA/VOMITING Sodium Chloride 10 ml 10/13/16 06:00 10/13/16 05:58 Sodium Chloride 0.9% 10 Ml Flush Syringe IV 11/12/16 05:59 10 ml Q8HT YEISON Administration Discontinued Medications Generic Name Dose Route Start Last Admin Trade Name Freq PRN Reason Stop Dose Admin Benzocaine/Butamben/Tetracaine HCl 1 spray 10/11/16 12:31 10/11/16 13:10 Cetacaine Bard TP 10/11/16 12:32 1 spray ONCE ONE Administration Hydromorphone HCl 1 mg 10/07/16 20:00 10/07/16 20:06 Hydromorphone 1 Mg/Ml Ampule IV 10/07/16 20:01 1 mg STAT ONE Administration Hydromorphone HCl Confirm 10/07/16 20:05 Hydromorphone 1 Mg/Ml Ampule Administered 10/07/16 20:06 Dose 1 mg .ROUTE .STK-MED ONE Hydromorphone HCl 1 mg 10/07/16 22:48 10/11/16 22:51 Dilaudid 2 Mg Injection IV 10/12/16 22:47 1 mg Q4H PRN PRN Administration PAIN Sodium Chloride 1,000 mls @ 999 mls/hr 10/07/16 20:01 10/07/16 20:11 Sodium Chloride 0.9% 1000 Ml IV 10/07/16 21:01 999 mls/hr .Q1H1M STA Administration Sodium Chloride Confirm 10/07/16 20:10 Sodium Chloride 0.9% 1000 Ml Administered 10/07/16 20:11 Dose 1,000 mls @ ud .ROUTE .STK-MED ONE Potassium Chloride/Sodium Chloride 1,000 mls @ 100 mls/hr 10/07/16 22:48 00:05 Sodium Chloride 0.9% W/ 20 Meq Kcl/Liter IV 11/06/16 22:47 100 mls/hr .Q10H YEISON Administration Potassium Chloride/Dextrose/Sod Cl 1,000 mls @ 150 mls/hr 10/11/16 06:30 17:51 Dextrose 5% -Nacl 0.9% 1000 Ml + Kcl 20 Meq IV 11/10/16 06:29 150 mls/hr .Q6H40M YEISON Administration Ondansetron HCl 4 mg 10/07/16 19:57 10/07/16 20:06 Zofran 4 Mg/2 Ml Vial IV 10/07/16 19:58 4 mg STAT ONE Administration Ondansetron HCl Confirm 10/07/16 20:05 Zofran 4 Mg/2 Ml Vial Administered 10/07/16 20:06 Dose 4 mg .ROUTE .STK-MED ONE Pantoprazole Sodium 40 mg 10/07/16 20:01 10/07/16 20:14 Protonix 40 Mg Iv IV 10/07/16 20:02 40 mg STAT ONE Administration Pantoprazole Sodium Confirm 10/07/16 20:10 Protonix 40 Mg Iv Administered 10/07/16 20:11 Dose 40 mg IV .STK-MED ONE Intake & Output (Last 24 hours) 10/10/16 10/11/16 10/12/16 10/13/16 11:59 11:59 11:59 11:59 Intake Total 2218 2461 5441 600 Output Total 700 1200 500 100 Balance 1518 1261 4941 500 Weight 52.844 kg 52.844 kg Orders (Last 24 hours) Category Date Time Status Miscellaneous Nursing Order ROUTINE Care 10/12/16 18:15 Completed Regular Diet Diet 10/13/16 Breakfast Active ABDOMEN 2 VIEW DAILY Exams 10/13/16 10:30 Completed ABDOMEN 2 VIEW DAILY Exams 10/14/16 10:30 Ordered NaCl 0.9% 10 ML FLUSH [Sodium Chloride 0.9% 10 ML FLUSH Med 10/13/16 06:00 Active Syringe] 10 ml IV Q8HT Patient Care Notes (Last 24 hours) 10/12/16 20:00 (created 10/12/16 23:09) Nursing Note by Arlette Sahni Dr. gave new order to "DC IV fluids and SL lock IV." Order read back and accepted, placed in MAR. Initialized on 10/12/16 23:09 - END OF NOTE 10/12/16 18:23 Nursing Note by Chanel Fernández @ 18:15 NG tube discontinued per Dr Agustina Gonzales order, pt tolerated well. pt diet advanced to full liquid. Initialized on 10/12/16 18:23 - END OF NOTE 10/12/16 17:06 Nursing Note by Chanel Fernández NG tube was clamped off at 11:00. pt walked in hallway and took a shower. Left NG clamped. pt continue to complain of no nausea or abd pain. Initialized on 10/12/16 17:06 - END OF NOTE patient is doing better, will discharge home, follow up with Dr young in 1 week, follow up with Dr Mitchel Fregoso in 1 week - Vitals & Intake/Output Vital Signs: Vital Signs Temperature 98.6 F 10/13/16 07:54 Pulse Rate 61 10/13/16 07:54 Respiratory Rate 18 10/13/16 07:54 Blood Pressure 100/58 10/13/16 07:54 O2 Sat by Pulse Oximetry 95 10/13/16 07:54 Intake & Output: Intake & Output 10/10/16 10/11/16 10/12/16 10/13/16 11:59 11:59 11:59 11:59 Intake Total 2218 2461 5441 600 Output Total 700 1200 500 100 Balance 1518 1261 4941 500 Weight 52.844 kg 52.844 kg - Lab Result Diagrams: 10/12/16 05:23 10/11/16 05:18 - Radiology Exams Ordered Rad Exams-Entire Visit: Radiology Procedures Category Date Time Status ABDOMEN 2 VIEW DAILY Exams 10/12/16 10:30 Completed ABDOMEN 2 VIEW DAILY Exams 10/13/16 10:30 Completed ABDOMEN 2 VIEW DAILY Exams 10/14/16 10:30 Ordered - Procedures and Test Procedures and Tests throughout Hospitalization: Therapy Orders & Screens 10/07/16 23:48 Smoking Cessation Education ONCE Comment: Diagnosis: SBO Smoking Status: Current every day smoker How long have you smoked: 32 Approximately how many cigarettes per day: 10-20 Do you dip or chew tobacco: No Discharge Exam General Appearance: no apparent distress, alert Neurologic Exam: alert, oriented x 3, cooperative, normal mood/affect, nml cerebellar function, sensation nml, No motor deficits Skin Exam: normal color, warm, dry Eye Exam: PERRL, EOMI, eyes nml inspection Ears, Nose, Throat Exam: normal ENT inspection, pharynx normal, moist mucous membranes Neck Exam: normal inspection, non-tender, supple, full range of motion Respiratory Exam: normal breath sounds, lungs clear, No respiratory distress Cardiovascular Exam: regular rate/rhythm, normal heart sounds Gastrointestinal/Abdomen Exam: soft, No tenderness, No mass Extremity Exam: normal inspection, normal range of motion Back Exam: normal inspection, normal range of motion, No CVA tenderness, No vertebral tenderness Pelvic Exam: deferred Rectal Exam: deferred Final Diagnosis/Problem List - Final Discharge Diagnosis/Problem (1) Abdominal pain Current Visit: Yes Status: Resolved (2) Small bowel obstruction Current Visit: Yes Status: Resolved (3) Vomiting Current Visit: Yes Status: Resolved - Discharge Discharge Date: 10/13/16 Disposition: Home, Self-Care Condition: Stable Prescriptions: No Action Tapentadol HCl [Nucynta ER] 250 mg PO BID Topiramate 100 mg [Topamax 100 MG] 100 mg PO BID Tizanidine HCl 4 mg [Zanaflex 4 MG] 4 mg PO BID Duloxetine HCl [Cymbalta] 90 mg PO DAILY Follow up with: TEGAN FREGOSO [Primary Care Provider] - 1 Week Forms: Patient Portal Information
== END 2016-10-13 12:50 | disposition home or self-care (01) | DRG 392 ==
LOC: ED 19:24 → MED SURG 22:40
PROVIDERS: ADMIT General Practice; ATTEND General Practice
DX: R10.9 Unspecified abdominal pain (principal); K56.60 Unspecified intestinal obstruction; R11.2 Nausea with vomiting, unspecified; F32.9 Major depressive disorder, single episode, unspecified; M54.9 Dorsalgia, unspecified; M54.2 Cervicalgia; G89.29 Other chronic pain; F45.42 Pain disorder with related psychological factors; Z79.899 Other long term (current) drug therapy; Z85.41 Personal history of malignant neoplasm of cervix uteri; Z72.0 Tobacco use
CPT/HCPCS: 36000; 36415; 74000; 74020; 74177; 80048; 80053; 80307; 82962; 83690; 85025; 85027; 94760; 96360; 99285; J1170; J2405; J2550; A9270-GY

== ENCOUNTER 2017-02-13 18:26 | Observation (INO) | payer MEDICARE ==
[2017-02-13] MEDS ORDERED: Zofran 4 MG/2 ML VIAL IV ONE (18:53)
[2017-02-13] MEDS ORDERED: Hydromorphone 1 mg/ml Ampule IV ONE ×2 (18:55→20:00)
--- NOTE | 2017-02-13 19:01 | ERPHSYRPT ---
- History of Present Illness Time Seen by Provider: 02/13/17 18:53 Historian: patient, family Exam Limitations: no limitations Patient Subjective Stated Complaint: pt states she began having abd pain approx 2.5 hours ago. states the pain is like she had earlier this year with an obstruction Triage Nursing Assessment: pt alert and oriented, asnwers questions approp. pt ambulatory with steady, slow gait noted. respirations nonlabored, lungs cta. skin warm and dry. abd soft, tender to light palpation. bowel sounds present, hypo in all 4 quads. denies passing flatus today Physician History: patietn with onset of abdomianl pain 3 hrs ago; similar to episode of SBO she had in September of this year; some N but no emesis; last ate cottage cheese at noon ; no fever; voiding ok; small normal bm today; no travel ; no exposures Timing/Duration: today, hour(s) (3), constant, gradual onset, worse Activities at Onset: rest Quality: aching, cramping Abdominal Pain Onset Location: epigastric, periumbilical Pain Radiation: LUQ Severity of Pain-Max: severe Severity of Pain-Current: moderate Modifying Factors: Improves With: exercise, walking Associated Symptoms: back, loss of appetite, nausea Previous symptoms: same symptoms as today Allergies/Adverse Reactions: morphine Adverse Reaction (Verified 02/13/17 18:54) Nausea Home Medications: Duloxetine HCl [Cymbalta] 90 mg PO DAILY 10/07/16 [History] Tapentadol HCl [Nucynta ER] 250 mg PO BID 10/07/16 [History] Tizanidine HCl 4 mg [Zanaflex 4 MG] 8 mg PO HS 10/07/16 [History] Alprazolam 1 mg [Xanax 1 mg] 1 mg PO BID 02/13/17 [History] Butalb/Acetaminophen/Caffeine [Hgqrsc-Qhfsxdqc-Gotd 50-325-40] 1 each PO Q6HPRN PRN 02/13/17 [History] Gabapentin [Gralise] 300 mg PO HS PRN PRN 02/13/17 [History] Mirtazapine 30 mg [Remeron 30 mg] 30 mg PO HS 02/13/17 [History] Omeprazole 20 MG [Prilosec 20 mg] 20 mg PO DAILY 02/13/17 [History] Oxycodone HCl 5 mg Ir [Oxy-IR 5 MG] 5 mg PO Q6H PRN PRN 02/13/17 [History] Hx Tetanus, Diphtheria Vaccination/Date Given: No (unkown) Hx Influenza Vaccination/Date Given: No Hx Pneumococcal Vaccination/Date Given: No - Review of Systems Constitutional: No Symptoms Eyes: No Symptoms Ears, Nose, & Throat: No Symptoms Respiratory: No Cough, No Dyspnea, No Wheezing Cardiac: No Chest Pain, No Palpitations, No Syncope Abdominal/Gastrointestinal: Abdominal Pain, Nausea, No Vomiting, No Diarrhea, No Constipation, No Hematemesis, No Hematochezia, No Melena Genitourinary Symptoms: No Symptoms Musculoskeletal: Back Pain, No Deformity, No Fall, No Injury, No Joint Redness Skin: No Symptoms Neurological: No Symptoms Psychological: No Symptoms Endocrine: No Symptoms Hematologic/Lymphatic: No Symptoms Immunological/Allergic: No Symptoms - Past Medical History Pertinent Past Medical History: Yes Neurological History: Migraines ENT History: No Pertinent History Cardiac History: No Pertinent History Respiratory History: No Pertinent History Endocrine Medical History: No Pertinent History Musculoskeletal History: No Pertinent History GI Medical History: Other History: No Pertinent History Psycho-Social History: Depression Female Reproductive Disorders: Cervical Cancer Other Medical History: chronic back and neck pain - Past Surgical History Past Surgical History: Yes Neuro Surgical History: No Pertinent History Gastrointestinal: Appendectomy, Cholecystectomy Musculoskeletal: Other Female Surgical History: Hysterectomy Other Surgical History: neck surgery - Social History Smoking Status: Current every day smoker How long have you smoked: 32 Exposure to second hand smoke: Yes Alcohol Use: Socially Drug Use: none Patient Lives Alone: No Significant Family History: no pertinent family hx - Female History Hx Last Menstrual Period: hyster Hx Now: No - Nursing Vital Signs Nursing Vital Signs: Initial Vital Signs Temperature 97.8 F 02/13/17 18:44 Pulse Rate 75 02/13/17 18:44 Respiratory Rate 28 H 02/13/17 18:44 Blood Pressure 127/81 02/13/17 18:44 O2 Sat by Pulse Oximetry 97 02/13/17 18:44 Pain Scale Pain Intensity 7 - Physical Exam General Appearance: moderate distress, alert, thin Eye Exam: PERRL/EOMI, eyes nml inspection, No photophobia Ears, Nose, Throat Exam: normal ENT inspection, TMs normal, pharynx normal, dry mucous membranes, No moist mucous membranes Neck Exam: normal inspection, non-tender, supple, full range of motion, No meningismus, No JVD Respiratory Exam: normal breath sounds, lungs clear, airway intact, No chest tenderness, No respiratory distress, No rhonchi, No wheezing Cardiovascular Exam: regular rate/rhythm, normal heart sounds, normal peripheral pulses, capillary refill 2-3 sec, No murmur Gastrointestinal/Abdomen Exam: soft, tenderness (diffuse; epig > periumbilical) , guarding (active mild epig only), No normal bowel sounds (deminished but present), No distention, No pulsatile mass, No rebound, No organomegaly Pelvic Exam: deferred Rectal Exam: deferred Back Exam: normal inspection, normal range of motion, No CVA tenderness, No rash Extremity Exam: normal inspection, normal range of motion, No uriel's sign, No pedal edema Neurologic Exam: alert, oriented x 3, cooperative, health and wellness coach II-XII nml as tested, normal mood/affect, nml cerebellar function, nml station & gait Skin Exam: normal color, warm, dry, No rash, No petechiae SpO2 Interpretation: normal SpO2: 97 Oxygen Delivery: Room Air - Course Nursing assessment & vital signs reviewed: Yes - Radiology Exams Abdomen X-ray Interpretation: Interpreted by me, No Pneumonia, No Pneumothorax, Nml Heart Size, Other (sentinal loop but no free air or air fluid levels) Ordered Tests: Active Orders 24 hr Category Date Time Status Bedrest ROUTINE Activity 02/13/17 20:39 Active Admission/Status Order ROUTINE Care 02/13/17 20:37 Active Call Admit Doctor for Orders ON ADMISSION Care 02/13/17 20:38 Active Code Status Order ROUTINE Care 02/13/17 20:37 Active Fall Protocol ROUTINE Care 02/13/17 20:39 Active IV Care Q6H Care 02/13/17 20:37 Active IV Insertion STAT Care 02/13/17 18:53 Active NG to Suction ROUTINE Care 02/13/17 20:37 Active NPO (ED) STAT Care 02/13/17 18:53 Active Re-Check Vital Signs STAT Care 02/13/17 18:53 Active Fito Hose, Apply ROUTINE Care 02/13/17 20:37 Active Weight,Daily 0600 Care 02/13/17 20:37 Active NPO Diet 02/13/17 20:39 Active OBSTR/ACUTE ABDOMEN SERIES Stat Exams 02/13/17 18:54 Taken AMYLASE Stat Lab 02/13/17 19:10 Completed CBC W DIFF Stat Lab 02/13/17 19:10 Completed CMP Stat Lab 02/13/17 19:10 Completed CULTURE,URINE Stat Lab 02/13/17 18:54 Received LIPASE Stat Lab 02/13/17 19:10 Completed Lactic Acid Stat Lab 02/13/17 19:35 Completed UA W/ MICROSCOPIC Stat Lab 02/13/17 18:54 Completed Transfer Order Routine Transfer 02/13/17 Ordered Medication Summary Generic Name Dose Route Start Last Admin Trade Name Freq PRN Reason Stop Dose Admin Sodium Chloride 1,000 mls @ 100 mls/hr 02/13/17 19:00 02/13/17 19:13 Sodium Chloride 0.9% 1000 Ml IV 03/15/17 18:59 100 mls/hr .Q10H YEISON Administration Discontinued Medications Generic Name Dose Route Start Last Admin Trade Name Freq PRN Reason Stop Dose Admin Hydromorphone HCl 1 mg 02/13/17 18:55 02/13/17 19:13 Hydromorphone 1 Mg/Ml Ampule IV 02/13/17 18:56 1 mg STAT ONE Administration Hydromorphone HCl Confirm 02/13/17 19:08 Hydromorphone 1 Mg/Ml Ampule Administered 02/13/17 19:09 Dose 1 mg .ROUTE .STK-MED ONE Hydromorphone HCl 1 mg 02/13/17 20:00 02/13/17 20:12 Hydromorphone 1 Mg/Ml Ampule IV 02/13/17 20:01 1 mg STAT ONE Administration Hydromorphone HCl Confirm 02/13/17 20:10 Hydromorphone 1 Mg/Ml Ampule Administered 02/13/17 20:11 Dose 1 mg .ROUTE .STK-MED ONE Ondansetron HCl 4 mg 02/13/17 18:53 02/13/17 19:13 Zofran 4 Mg/2 Ml Vial IV 02/13/17 18:54 4 mg STAT ONE Administration Ondansetron HCl Confirm 02/13/17 19:08 Zofran 4 Mg/2 Ml Vial Administered 02/13/17 19:09 Dose 4 mg .ROUTE .STK-MED ONE Lab/Rad Data: Laboratory Result Diagrams 02/13/17 19:10 02/13/17 19:10 Laboratory Results 02/13/17 02/13/17 02/13/17 Range/Units 19:35 19:10 19:10 WBC 9.1 (4.0-10.5) K/mm3 RBC 4.80 (4.1-5.4) M/mm3 Hgb 15.2 (12.0-16.0) gm/dl Hct 46.6 (35-47) % MCV 97.1 (78-100) fl MCH 31.7 (26-32) pg MCHC 32.6 (32-36) g/dl RDW 13.5 (11.5-14.0) % Plt Count 311 (150-450) K/mm3 MPV 9.2 (6-9.5) fl Gran % 57.8 (36.0-66.0) % Lymphocytes % 31.3 (24.0-44.0) % Monocytes % 8.0 (0.0-12.0) % Eosinophils % 2.6 (0.00-5.0) % Basophils % 0.3 (0.0-0.4) % Basophils # 0.03 (0-0.4) Sodium 139 (136-145) mEq/L Potassium 4.0 (3.5-5.1) mEq/L Chloride 105 (98-107) mEq/L Carbon Dioxide 25.8 (21-32) mEq/L Anion Gap 12.6 (5-15) MEQ/L BUN 11 (9-20) mg/dL Creatinine 0.77 (0.55-1.30) mg/dl Estimated GFR > 60 ML/MIN Glucose 97 (70-110) MG/DL Lactic Acid 1.0 (0.4-2.0) Calcium 9.8 (8.5-10.1) mg/dL Total Bilirubin 0.20 (0.2-1.0) mg/dL AST 22 (15-37) U/L ALT 11 L (12-78) U/L Alkaline Phosphatase 82 (46-116) U/L Serum Total Protein 7.4 (6.4-8.2) gm/dL Albumin 3.8 (3.4-5.0) g/dL Amylase 90 (25-115) U/L Lipase 162 (73-393) U/L Ur Collection Type Urine Color (YELLOW) Urine Appearance (CLEAR) Urine pH (5-6) Ur Specific Paxton (1.005-1.025) Urine Protein (Negative) Urine Ketones (NEGATIVE) Urine Blood (0-5) Lito/ul Urine Nitrite (NEGATIVE) Urine Bilirubin (NEGATIVE) Urine Urobilinogen (0-1) mg/dL Ur Leukocyte Esterase (NEGATIVE) Urine Microscopic RBC (0-2) /HPF Urine Microscopic WBC (0-5) /HPF Urine Bacteria (NEGATIVE) /HPF Urine Mucus (NEGATIVE) /HPF Urine Glucose (NEGATIVE) mg/dL Specimen Received 02/13/17 Range/Units 18:54 WBC (4.0-10.5) K/mm3 RBC (4.1-5.4) M/mm3 Hgb (12.0-16.0) gm/dl Hct (35-47) % MCV (78-100) fl MCH (26-32) pg MCHC (32-36) g/dl RDW (11.5-14.0) % Plt Count (150-450) K/mm3 MPV (6-9.5) fl Gran % (36.0-66.0) % Lymphocytes % (24.0-44.0) % Monocytes % (0.0-12.0) % Eosinophils % (0.00-5.0) % Basophils % (0.0-0.4) % Basophils # (0-0.4) Sodium (136-145) mEq/L Potassium (3.5-5.1) mEq/L Chloride (98-107) mEq/L Carbon Dioxide (21-32) mEq/L Anion Gap (5-15) MEQ/L BUN (9-20) mg/dL Creatinine (0.55-1.30) mg/dl Estimated GFR ML/MIN Glucose (70-110) MG/DL Lactic Acid (0.4-2.0) Calcium (8.5-10.1) mg/dL Total Bilirubin (0.2-1.0) mg/dL AST (15-37) U/L ALT (12-78) U/L Alkaline Phosphatase (46-116) U/L Serum Total Protein (6.4-8.2) gm/dL Albumin (3.4-5.0) g/dL Amylase (25-115) U/L Lipase (73-393) U/L Ur Collection Type CCMS Urine Color YELLOW (YELLOW) Urine Appearance CLEAR (CLEAR) Urine pH 6.0 (5-6) Ur Specific Paxton 1.020 (1.005-1.025) Urine Protein NEGATIVE (Negative) Urine Ketones NEGATIVE (NEGATIVE) Urine Blood TRACE NON-HEM (0-5) Lito/ul Urine Nitrite NEGATIVE (NEGATIVE) Urine Bilirubin NEGATIVE (NEGATIVE) Urine Urobilinogen NORMAL (0-1) mg/dL Ur Leukocyte Esterase NEGATIVE (NEGATIVE) Urine Microscopic RBC 2-5 (0-2) /HPF Urine Microscopic WBC 0-2 (0-5) /HPF Urine Bacteria RARE (NEGATIVE) /HPF Urine Mucus SLIGHT (NEGATIVE) /HPF Urine Glucose NEGATIVE (NEGATIVE) mg/dL Specimen Received 02-13-17 1832 reviewed - Progress Progress: improved (after meds), re-examined (after meds) Progress Note: 02/13/17 19:00 at bedside; will start IV and give fluids and meds for pain ( has had dilaudid in past without problems)and N; labs and xr pending; will monitor and recheck; treatmetn plan discussed 02/13/17 19:32 rechecked; meds given; Nausea resolving; no releif of pain yet; xr pending; cbc wnl; other labs pending 02/13/17 19:41 ua neg except for trace amount of blood; patient in XR 02/13/17 19:58 xr shows no free air or air fluid but has a sentinal loop suggestive of possible early SBO pending; will medicate and recheck; other labs pending 02/13/17 20:01 02/13/17 20:08 lactate 1.0 02/13/17 20:12 BS; renal function; chem profile and lytes all wnl; will review date; reassess patient and contact lmd for disposition 02/13/17 20:33 Amylase and lipase wnl; patient getting some releif with additional meds but still in pain; Dr Mojica consulted and will admit for Dr Duenas; patient and family informed; will pass and NG if emesis ensues Discussed with .: Other (Dr Mojica consulted and will admit) Will see patient in: hospital (observation) Counseled pt/family regarding: lab results, diagnosis, need for follow-up, rad results, smoking cessation - Departure Time of Disposition: 20:35 Departure Disposition: Observation Clinical Impression: Acute generalized abdominal pain, SBO (small bowel obstruction) Condition: Serious Critical Care Time: No Referrals: TEGAN ECHEVARRIA [Primary Care Provider] - NERIS MOJICA [COURTESY STAFF] - Instructions: Abdominal Pain-Adult
[2017-02-13] MEDS ORDERED: Hydromorphone 1 mg/ml Ampule ONE ×2 (19:08→20:10)
[2017-02-13] MEDS ORDERED: Zofran 4 MG/2 ML VIAL ONE (19:08)
[2017-02-13] MEDS: Sodium Chloride 0.9% 1000 ML 1,000 ML IV SCH (19:13)
[2017-02-13 19:20] LABS: BASOPHIL % 0.3 % (0.0-0.4); Eosinophil % 2.6 % (0.00-5.0); Granulocytes % 57.8 % (36.0-66.0); Lymphocytes % 31.3 % (24.0-44.0); Mean Cell Volume 97.1 fl (78-100); Mean Corpuscular Hemoglobin 31.7 pg (26-32); Mean Platelet Volume 9.2 fl (6-9.5); Platelet Count 311 K/mm3 (150-450); Red Cell Distribution Width 13.5 % (11.5-14.0); White Blood Count 9.1 K/mm3 (4.0-10.5)
[2017-02-13 19:32] LABS: Bilirubin NEGATIVE (NEGATIVE); Blood TRACE NON-HEM Ery/ul (0-5); COMPLETE URINE MICROSCOPIC? YES; Collection Type CCMS; Glucose NEGATIVE (NEGATIVE); Leukocyte Esterase NEGATIVE (NEGATIVE); Mucus SLIGHT /HPF (NEGATIVE); WBC 0-2 /HPF (0-5)
[2017-02-13 19:33] LABS: ADD URINE CULTURE? YES (NO); Bacteria RARE /HPF (NEGATIVE)
[2017-02-13 19:56] LABS: ALBUMIN 3.8 g/dL (3.4-5.0); ALKALINE PHOSPHATASE 82 U/L (46-116); ANION GAP 12.6 MEQ/L (5-15); BLOOD UREA NITROGEN 11 mg/dL (9-20); CHLORIDE 105 mEq/L (98-107); Carbon Dioxide 25.8 mEq/L (21-32); Glucose 97 MG/DL (70-110); LIPASE 162 U/L (73-393); SGOT/AST 22 U/L (15-37); SGPT/ALT 11 U/L (12-78); SODIUM 139 mEq/L (136-145); Total Protein 7.4 gm/dL (6.4-8.2)
[2017-02-13] MEDS ORDERED: Zofran 4 MG/2 ML VIAL IV PRN (20:37)
[2017-02-13] MEDS ORDERED: DILAUDID 2 MG INJECTION IV PRN (20:37)
[2017-02-13] MEDS ORDERED: XANAX 1 MG PO ONE (22:30)
[2017-02-13] MEDS ORDERED: REMERON 30 MG PO ONE (22:30)
[2017-02-13] MEDS ORDERED: NEURONTIN 300 MG PO ONE (22:30)
--- NOTE | 2017-02-13 23:36 | XRAY ---
Indication: Bilateral abdominal pain. History of small bowel obstruction. Comparison: Abdomen October 13, 2016. 2 views of the abdomen now demonstrates a focal central air distended small bowel loop with air fluid leveling concerning for small bowel obstruction. There is distal colonic bowel gas and scattered fecal debris. Previous cholecystectomy. Osseous structures intact. Single PA chest hyperinflated and clear with right base calcified granuloma. Heart is not enlarged. Bony thorax intact. Impression: 1. Focal central air distended small bowel loop with distal colonic bowel gas concerning for partial/early small bowel obstruction. CT may yield further information. 2. Nonacute hyperinflated one view chest.
[2017-02-14] MEDS ORDERED: Oxy-IR 5 MG PO PRN (10:23)
[2017-02-14] MEDS ORDERED: [UNRECOGNIZED DRUG - OTHER] PO PRN (10:23)
[2017-02-14] MEDS ORDERED: GABAPENTIN 300 MG PO PRN (10:23)
[2017-02-14] MEDS ORDERED: BUTALB PO PRN (10:23)
[2017-02-14] MEDS ORDERED: ACETAMINOPHEN PO PRN (10:23)
[2017-02-14] MEDS ORDERED: CAFFEINE PO PRN (10:23)
[2017-02-14] MEDS ORDERED: NEURONTIN 300 MG PO PRN (10:26)
[2017-02-14] MEDS: Protonix 40MG Tablet PO SCH (10:42)
[2017-02-14] MEDS: Cymbalta 30 MG Capsule PO SCH (10:42)
[2017-02-14] MEDS: XANAX 1 MG PO SCH ×3 (10:49→22:01)
[2017-02-14] MEDS ORDERED: TORAdol 30 mg Injection IM ONE (13:45)
--- NOTE | 2017-02-14 14:59 | HP ---
HISTORY OF PRESENT ILLNESS: The patient is a 51 year-old individual reported to the hospital with chief complaint of having some abdominal discomfort and a persistent headache. The patient does have a history of partial abdominal obstruction in the past, has had multiple surgeries including hysterectomy, cholecystectomy and section. Had an earlier admission for irritable bowel changes. The patient does seem to take chronic pain medications also, and also significant for anxiety. The patient states she had vomiting yesterday for about an hour, however, nothing was written as to such. MEDICATIONS: Oxycodone 5 mg daily, Nucynta 250 mg 2 tablets daily, Butal-APAP every hour, Cymbalta 90 daily, tizanidine 4 mg, 2 at night, alprazolam 1 mg, 2 x daily, mirtazapine 30 mg at night, omeprazole 40 daily, Gralise 30 daily. REVIEW OF SYSTEMS: GENERAL: No fever, no weight loss. CVS: There is no chest pain or palpitations. PULMONARY SYSTEM: Negative. GI: The patient does have some diffuse bowel sounds, however, some abdominal discomfort. EXTREMITIES: No edema. Pedal pulses are weak, but present. NEUROLOGIC: Alert, awake, no focal deficits. The patient, however, does complain of significant headaches. SOCIAL HISTORY: Positive for smoking but denies any alcohol or drug abuse. FAMILY HISTORY: Noncontributory. PHYSICAL EXAMINATION: GENERAL: The patient appeared reasonably comfortable, some headache. Her chest has been bothering her, as per her. VITAL SIGNS: Were reviewed. Blood pressure 110/70, pulse 88, respiratory rate 16, temperature afebrile. HEENT: Pupils are reactive. NECK: No JVD or thyromegaly. CHEST: Good air entry bilaterally. HEART: S1 S2 normal. ABDOMEN: Soft, nontender. Bowel sounds present. EXTREMITIES: No edema. Pedal pulses present. NEUROLOGIC: Alert, no focal deficits. LABORATORY DATA: The patient's lab data showed a white count of 9.1, hemoglobin 15.2, hematocrit 46.6, MCV 97. Sodium 139, potassium 4, chloride 105. BUN 11, creatinine 0.7, GFR 97. UA is essentially negative, no evidence of any UTI. ASSESSMENT AND PLAN: * Some abdominal discomfort with partial bowel obstruction, probably. IV fluids or nausea medicines. Will follow up on this issue, but clinically seems stable. Labs are essentially normal. IV fluids will continue. Cautious clear liquids will be started. * Headache. Will give her Toradol. She is presently on a significant amount of medication for pain, which will be continued. * The patient will be put on deep vein thrombosis prophylaxis. * The patient does seem very anxious and does show some signs of drug seeking.
[2017-02-14] MEDS: Sodium Chloride 0.9% 1000 ML 1,000 ML IV SCH (15:18)
[2017-02-14] MEDS: Zofran 4 MG/2 ML VIAL IV SCH (17:43)
[2017-02-14] MEDS ORDERED: TAPENTADOL HCL PO SCH (22:00)
[2017-02-14] MEDS ORDERED: REMERON 30 MG PO SCH (22:00)
[2017-02-14] MEDS ORDERED: Zanaflex 4 MG PO SCH (22:00)
[2017-02-15] MEDS: Sodium Chloride 0.9% 1000 ML 1,000 ML IV SCH (00:58)
[2017-02-15] MEDS: Zofran 4 MG/2 ML VIAL IV SCH ×2 (01:45→09:34)
[2017-02-15 08:16] VITALS: BP 93/51; PULSE 52; O2SAT 95
[2017-02-15] MEDS: Cymbalta 30 MG Capsule PO SCH (09:32)
[2017-02-15] MEDS: Protonix 40MG Tablet PO SCH (09:32)
[2017-02-15] MEDS: XANAX 1 MG PO SCH (09:34)
[2017-02-15] MEDS ORDERED: PATIENT OWN MEDICATION PO SCH (10:00)
[2017-02-15] MEDS ORDERED: NON-FORMULARY ITEM (Omeprazole 20 Mg [Prilosec 20 Mg] 20 MG) PO SCH (10:00)
[2017-02-15] MEDS ORDERED: Zofran 4 MG/2 ML VIAL IV PRN (16:00)
== END 2017-02-15 13:00 | disposition home or self-care (01) ==
LOC: ED 18:26 → MED SURG 21:00
PROVIDERS: ADMIT General Practice; ATTEND General Practice
DX: R10.9 Unspecified abdominal pain (principal); R51 Headache; Z65.8 Other specified problems related to psychosocial circumstances; Z79.899 Other long term (current) drug therapy; F41.9 Anxiety disorder, unspecified
CPT/HCPCS: 36000; 36415; 74022; 80053; 81000; 82150; 83605; 83690; 85025; 87086; 96360; 96374; 96375; 96376; 99285; G0378; J1170; J1885; J2405; A9270-GY

== ENCOUNTER 2020-02-01 12:27 | Day surgery (SDC) | payer MEDICARE ==
[2020-02-01] MEDS ORDERED: Lactated Ringers 1,000 ML IV ONE (14:27)
[2020-02-01] MEDS ORDERED: Ketamine HCl 50 MG/ML ONE (14:41)
[2020-02-01] MEDS ORDERED: DIPRIVAN 200 MG/20 ML IV ONE (14:41)
--- NOTE | 2020-02-01 16:25 | XRAY ---
Indication: Bilateral L4-S1 MBB. Intraoperative fluoroscopy was provided for 9 seconds. Single digital spot image submitted for interpretation demonstrates posterior needle tips projecting over the expected course of the left and right L4-S1 nerve roots. Correlate with intraoperative findings/report.
--- NOTE | 2020-02-01 17:07 | XRAY ---
9 seconds fluoroscopy time in surgery for bilateral L4-S1 MBB.
== END 2020-02-01 15:10 | disposition home or self-care (01) ==
LOC: SDC-PAIN 12:27
PROVIDERS: ATTEND Psychiatry & Neurology Pain Medicine
DX: M47.816 Spondylosis without myelopathy or radiculopathy, lumbar region (principal); F41.8 Other specified anxiety disorders; Z79.899 Other long term (current) drug therapy
CPT/HCPCS: 64493; 64494; 72020; 77002; 84703; J2704

== ENCOUNTER 2020-03-07 10:19 | Day surgery (SDC) | payer MEDICARE ==
[~2020-03-07 10:19] MED LIST: DIPRIVAN 200 MG/20 ML IV ONE; Ketamine HCl 50 MG/ML ONE
[2020-03-07] MEDS ORDERED: BUPIVACAINE 0.5% VIAL IJ ONE (10:20)
[2020-03-07] MEDS ORDERED: Lactated Ringers 1,000 ML IV ONE (13:53)
--- NOTE | 2020-03-08 14:55 | XRAY ---
29 seconds fluoroscopy time in surgery for bilateral L4-S1 MBB.
--- NOTE | 2020-03-10 22:49 | XRAY ---
Indication: Bilateral L4-S1 MBB. Intraoperative fluoroscopy was provided for 29 seconds. A single digital spot image submitted for interpretation demonstrates posterior spinal needle tips projected over the expected course of the left and right L4-S1 nerve roots. Correlate with intraoperative findings/report.
== END 2020-03-07 12:57 | disposition home or self-care (01) ==
LOC: SDC-PAIN 10:19
PROVIDERS: ATTEND Psychiatry & Neurology Pain Medicine
DX: M47.816 Spondylosis without myelopathy or radiculopathy, lumbar region (principal); F41.8 Other specified anxiety disorders; Z79.899 Other long term (current) drug therapy
CPT/HCPCS: 64493; 64494; 72020; 77002; 84703; J2704

== ENCOUNTER 2020-04-04 10:25 | Day surgery (SDC) | payer MEDICARE ==
[2020-04-04] MEDS ORDERED: Depo-Medrol 40 MG/ML IM ONE (10:26)
[2020-04-04] MEDS ORDERED: Xylocaine 1% Vial 30 ML PF IJ ONE (10:26)
[2020-04-04] MEDS ORDERED: BUPIVACAINE 0.5% VIAL IJ ONE (10:26)
[2020-04-04] MEDS ORDERED: Lactated Ringers 1,000 ML IV ONE (13:48)
--- NOTE | 2020-04-04 14:17 | XRAY ---
Indication: Right L4-S1 RFA. Intraoperative fluoroscopy was provided for 25 seconds. 3 digital spot images submitted for interpretation demonstrates posterior needle tips projecting over the expected right L4-S1 nerve roots. Correlate with intraoperative findings/report.
--- NOTE | 2020-04-04 16:56 | XRAY ---
25 seconds of fluoroscopy was used in surgery for a right L4-L5, L5-S1 RFA.
== END 2020-04-04 12:35 | disposition home or self-care (01) ==
LOC: SDC-PAIN 10:25
PROVIDERS: ATTEND Psychiatry & Neurology Pain Medicine
DX: M47.816 Spondylosis without myelopathy or radiculopathy, lumbar region (principal); K21.9 Gastro-esophageal reflux disease without esophagitis; F41.8 Other specified anxiety disorders; Z85.41 Personal history of malignant neoplasm of cervix uteri; Z79.899 Other long term (current) drug therapy
CPT/HCPCS: 64635; 64636; 72100; 77002; 84703; J1030; J2001; J2704

== ENCOUNTER 2020-05-30 11:21 | Day surgery (SDC) | payer MEDICARE ==
[2020-05-30] MEDS ORDERED: Depo-Medrol 40 MG/ML IM ONE (11:22)
[2020-05-30] MEDS ORDERED: BUPIVACAINE 0.5% VIAL IJ ONE (11:22)
[2020-05-30] MEDS ORDERED: DIPRIVAN 200 MG/20 ML IV ONE (12:27)
[2020-05-30] MEDS ORDERED: Ketamine HCl 50 MG/ML ONE (12:27)
--- NOTE | 2020-05-30 15:16 | XRAY ---
Indication: Bilateral SI joint injection. Intraoperative fluoroscopy was provided for 24 seconds. 4 digital spot images submitted for interpretation demonstrates posterior needle tip projecting over the inferior left and right SI joint. Correlate with intraoperative findings/report.
--- NOTE | 2020-05-30 15:21 | XRAY ---
24 seconds fluoroscopy time in surgery for bilateral SI joint injections.
[2020-05-30] MEDS ORDERED: Lactated Ringers 1,000 ML IV ONE (16:05)
== END 2020-05-30 12:51 | disposition home or self-care (01) ==
LOC: SDC-PAIN 11:21
PROVIDERS: ATTEND Psychiatry & Neurology Pain Medicine
DX: M46.1 Sacroiliitis, not elsewhere classified (principal); Z79.899 Other long term (current) drug therapy
CPT/HCPCS: 27096; 72202; 77002; G0260; J1030; J2704

== ENCOUNTER 2020-08-15 10:18 | Day surgery (SDC) | payer MEDICARE ==
[2020-08-15] MEDS ORDERED: Sodium Chloride 0.9(Preservative Free) 10 ML IJ ONE (10:19)
[2020-08-15] MEDS ORDERED: Depo-Medrol 40 MG/ML IM ONE (10:19)
[2020-08-15] MEDS ORDERED: Ketamine HCl 50 MG/ML ONE (12:27)
[2020-08-15] MEDS ORDERED: DIPRIVAN 200 MG/20 ML IV ONE (12:27)
--- NOTE | 2020-08-15 14:11 | XRAY ---
Indication: Right L4-S1 transforaminal MISSY. Intraoperative fluoroscopy provided for 16 seconds. 3 digital spot images submitted for interpretation demonstrates posterior needle tips projecting over the expected right L4 and L5 nerve roots. Small amount of contrast injected for needle tip placement. Correlate with intraoperative findings/report.
--- NOTE | 2020-08-15 14:22 | XRAY ---
16 seconds of fluoroscopy was used in surgery for a right L4-L5 and L5-I4iwirporvwlguct MISSY.
[2020-08-15] MEDS ORDERED: Lactated Ringers 1,000 ML IV ONE (15:04)
== END 2020-08-15 12:47 | disposition home or self-care (01) ==
LOC: SDC-PAIN 10:18
PROVIDERS: ATTEND Psychiatry & Neurology Pain Medicine
DX: M54.16 Radiculopathy, lumbar region (principal); Z79.899 Other long term (current) drug therapy
CPT/HCPCS: 64483; 64484; 72100; 77003; J1030; J2704; Q9966

== ENCOUNTER 2020-09-12 10:02 | Day surgery (SDC) | payer MEDICARE ==
[2020-09-12] MEDS ORDERED: Depo-Medrol 40 MG/ML IM ONE (10:03)
[2020-09-12] MEDS ORDERED: BUPIVACAINE 0.5% VIAL IJ ONE (10:03)
[2020-09-12] MEDS ORDERED: Ketamine HCl 50 MG/ML ONE (11:09)
[2020-09-12] MEDS ORDERED: DIPRIVAN 200 MG/20 ML IV ONE (11:09)
--- NOTE | 2020-09-12 12:56 | XRAY ---
Indication: Bilateral SI joint injection. Intraoperative fluoroscopy provided for 37 seconds. 4 digital spot images submitted for interpretation demonstrates posterior needle tip projecting over the inferior left and right SI joint. Correlate with intraoperative findings/report.
--- NOTE | 2020-09-12 13:00 | XRAY ---
37 seconds fluoroscopy time in surgery for bilateral injections of the SI joints.
[2020-09-12] MEDS ORDERED: Lactated Ringers 1,000 ML IV ONE (14:34)
== END 2020-09-12 12:05 | disposition home or self-care (01) ==
LOC: SDC-PAIN 10:02
PROVIDERS: ATTEND Psychiatry & Neurology Pain Medicine
DX: M46.1 Sacroiliitis, not elsewhere classified (principal); K85.90 Acute pancreatitis without necrosis or infection, unspecified; K21.9 Gastro-esophageal reflux disease without esophagitis; Z79.899 Other long term (current) drug therapy
CPT/HCPCS: 27096; 72202; 77002; G0260; J1030; J2704

== ENCOUNTER 2021-02-20 11:42 | Day surgery (SDC) | payer MEDICARE ==
[2021-02-20] MEDS ORDERED: LIDOCAINE HCL 2% 100 MG/5 ML IJ ONE (11:43)
[2021-02-20] MEDS ORDERED: DIPRIVAN 200 MG/20 ML IV ONE (12:16)
[2021-02-20] MEDS ORDERED: Lactated Ringers 1,000 ML IV ONE (13:18)
--- NOTE | 2021-02-20 13:30 | XRAY ---
Indication: Right C2-C4 MBB. Intraoperative fluoroscopy provided for 13 seconds. 3 digital spot images submitted for interpretation demonstrates posterior needle tips projecting over the expected right C2-C4 nerve roots. Correlate with intraoperative findings/report.
--- NOTE | 2021-02-20 13:39 | XRAY ---
13 seconds fluoroscopy time in surgery for right C2-C4 MBB.
== END 2021-02-20 12:51 | disposition home or self-care (01) ==
LOC: SDC-PAIN 11:42
PROVIDERS: ATTEND Psychiatry & Neurology Pain Medicine
DX: M47.812 Spondylosis without myelopathy or radiculopathy, cervical region (principal); Z79.899 Other long term (current) drug therapy
CPT/HCPCS: 64490; 64491; 72040; 77002; J2704

== ENCOUNTER 2021-03-13 11:45 | Day surgery (SDC) | payer MEDICARE ==
[2021-03-13] MEDS ORDERED: BUPIVACAINE 0.5% VIAL IJ ONE (11:46)
[2021-03-13] MEDS ORDERED: DIPRIVAN 200 MG/20 ML IV ONE (13:24)
--- NOTE | 2021-03-13 15:10 | XRAY ---
Indication: Right C2-C4 MBB. Intraoperative fluoroscopy provided for 12 seconds. 2 digital spot images submitted for interpretation demonstrates posterior needle tips projecting over the expected right C2-C4 nerve roots. Correlate with intraoperative findings/report.
--- NOTE | 2021-03-13 16:31 | XRAY ---
12 seconds of fluoroscopy was used in surgery for a right C2-C4 MBB.
[2021-03-13] MEDS ORDERED: Lactated Ringers 1,000 ML IV ONE (17:28)
== END 2021-03-13 13:55 | disposition home or self-care (01) ==
LOC: SDC-PAIN 11:45
PROVIDERS: ATTEND Psychiatry & Neurology Pain Medicine
DX: M47.812 Spondylosis without myelopathy or radiculopathy, cervical region (principal); Z79.899 Other long term (current) drug therapy
CPT/HCPCS: 64490; 64491; 64492; 72040; 77002; J2704

== ENCOUNTER 2021-04-10 11:47 | Day surgery (SDC) | payer MEDICARE ==
[2021-04-10] MEDS ORDERED: Xylocaine 1% Vial 30 ML PF IJ ONE (11:48)
[2021-04-10] MEDS ORDERED: LIDOCAINE HCL 2% 100 MG/5 ML IJ ONE (11:48)
[2021-04-10] MEDS ORDERED: DIPRIVAN 200 MG/20 ML IV ONE (13:15)
--- NOTE | 2021-04-10 14:51 | XRAY ---
Indication: Left C2-C4 MBB. Intraoperative fluoroscopy provided for 9 seconds. 3 digital spot images submitted for interpretation demonstrates posterior needle tips projecting over the expected left C2-C4 nerve roots. Correlate with intraoperative findings/report.
--- NOTE | 2021-04-10 15:09 | XRAY ---
9 seconds fluoroscopy time in surgery for left C2-C4 MBB.
[2021-04-10] MEDS ORDERED: Lactated Ringers 1,000 ML IV ONE (17:27)
== END 2021-04-10 13:41 | disposition home or self-care (01) ==
LOC: SDC-PAIN 11:47
PROVIDERS: ATTEND Psychiatry & Neurology Pain Medicine
DX: M47.812 Spondylosis without myelopathy or radiculopathy, cervical region (principal); F32.9 Major depressive disorder, single episode, unspecified; F41.9 Anxiety disorder, unspecified; G43.909 Migraine, unspecified, not intractable, without status migrainosus; K21.9 Gastro-esophageal reflux disease without esophagitis; Z79.899 Other long term (current) drug therapy
CPT/HCPCS: 64490; 64491; 72040; 77002; J2001; J2704

== ENCOUNTER 2021-04-26 11:41 | Day surgery (SDC) | payer MEDICARE ==
[2021-04-26] MEDS ORDERED: Xylocaine 1% Vial 30 ML PF IJ ONE (11:42)
[2021-04-26] MEDS ORDERED: Depo-Medrol 40 MG/ML IM ONE (11:42)
[2021-04-26] MEDS ORDERED: BUPIVACAINE 0.5% VIAL IJ ONE (11:42)
[2021-04-26] MEDS ORDERED: Lactated Ringers 1,000 ML IV ONE (12:13)
[2021-04-26] MEDS ORDERED: DIPRIVAN 200 MG/20 ML IV ONE (13:06)
--- NOTE | 2021-04-26 14:11 | XRAY ---
Indication: Right C2-C4 RFA. Intraoperative fluoroscopy provided for 20 seconds. 3 digital spot images submitted for interpretation demonstrates posterior needle tips projecting over the expected right C2-C4 nerve roots. Correlate with intraoperative findings/report.
--- NOTE | 2021-04-26 14:23 | XRAY ---
20 seconds fluoroscopy time in surgery for right C2-C4 RFA.
== END 2021-04-26 13:42 | disposition home or self-care (01) ==
LOC: SDC-PAIN 11:41
PROVIDERS: ATTEND Psychiatry & Neurology Pain Medicine
DX: M47.812 Spondylosis without myelopathy or radiculopathy, cervical region (principal); G43.909 Migraine, unspecified, not intractable, without status migrainosus; K21.9 Gastro-esophageal reflux disease without esophagitis; F41.9 Anxiety disorder, unspecified; F32.9 Major depressive disorder, single episode, unspecified; Z79.899 Other long term (current) drug therapy
CPT/HCPCS: 64633; 64634; 72040; 77002; J1030; J2001; J2704

== ENCOUNTER 2021-10-18 15:35 | Emergency (ER) | payer MEDICARE ==
--- NOTE | 2021-10-18 15:37 | ERPHSYRPT ---
- History of Present Illness Time Seen by Provider: 10/18/21 15:37 Historian: patient, family Exam Limitations: no limitations Physician History: This is a 56-year-old white female patient of Dr. Vesta Echevarria who presents with 2-day history of initial vomiting followed by diarrhea and abdominal pain secondary to the above. Approximately 2 days ago patient ate Chipot[employer] and several hours later she began having the above-stated symptoms. Patient has had a cholecystectomy, appendectomy and hysterectomy in the past. She has a history of gastroesophageal reflux disease, elevated cholesterol depression. The pain is generalized and it is described as a constant underlying crampiness with intermittent sharp stabbing pains. She has not been exposed to any body that she is aware of that has had flulike symptoms. Timing/Duration: day(s) (2) Quality: aching, cramping, sharpness, stabbing Abdominal Pain Onset Location: generalized abdomen Pain Radiation: no radiation Severity of Pain-Max: moderate Severity of Pain-Current: moderate Modifying Factors: Improves With: defecating, vomiting Associated Symptoms: diarrhea, loss of appetite, nausea, vomiting, weakness Previous symptoms: no prior history Allergies/Adverse Reactions: morphine Adverse Reaction (Verified 10/18/21 15:49) Nausea Home Medications: Duloxetine HCl [Cymbalta] 90 mg PO DAILY 10/07/16 [History] Tapentadol HCl [Nucynta ER] 250 mg PO BID 10/07/16 [History] Tizanidine HCl 4 mg [Zanaflex 4 MG] 8 mg PO HS 10/07/16 [History] ALPRAZolam 1 MG [Xanax 1 mg] 1 mg PO BID 02/13/17 [History] Butalb/Acetaminophen/Caffeine [Avhahs-Shxegron-Prqm 50-325-40] 1 each PO Q6HPRN PRN 02/13/17 [History] Gabapentin [Gralise] 300 mg PO HS PRN PRN 02/13/17 [History] Mirtazapine 30 mg [Remeron 30 mg] 30 mg PO HS 02/13/17 [History] Omeprazole 20 MG [Prilosec 20 mg] 20 mg PO DAILY 02/13/17 [History] Oxycodone HCl 5 mg Ir [Oxy-IR 5 MG] 5 mg PO Q6H PRN PRN 02/13/17 [History] Hx Tetanus, Diphtheria Vaccination/Date Given: No (unkown) Hx Influenza Vaccination/Date Given: No Hx Pneumococcal Vaccination/Date Given: No Travel Risk - International Travel Have you traveled outside of the country in past 3 weeks: No - Coronavirus Screening Are you exhibiting any of the following symptoms?: Yes Symptoms: Vomiting/Diarrhea Close contact with a COVID-19 positive Pt in past 14-21 Days: No - Review of Systems Constitutional: Weakness Eyes: No Symptoms Ears, Nose, & Throat: No Symptoms Respiratory: No Symptoms Cardiac: No Symptoms Abdominal/Gastrointestinal: Abdominal Pain, Nausea, Vomiting, Diarrhea, Appetite Changes Genitourinary Symptoms: No Symptoms Musculoskeletal: No Symptoms Skin: No Symptoms Neurological: No Symptoms Psychological: No Symptoms Endocrine: No Symptoms Hematologic/Lymphatic: No Symptoms Immunological/Allergic: No Symptoms All Other Systems: Reviewed and Negative - Past Medical History Pertinent Past Medical History: Yes Neurological History: No Pertinent History ENT History: No Pertinent History Cardiac History: High Cholesterol Respiratory History: No Pertinent History Endocrine Medical History: No Pertinent History Musculoskeletal History: Arthritis GI Medical History: Other History: No Pertinent History Psycho-Social History: Depression Female Reproductive Disorders: Cervical Cancer Other Medical History: She notes she gets chip horse muscle spasms on the R side of neck and into jaw. - Past Surgical History Past Surgical History: Yes Neuro Surgical History: No Pertinent History Gastrointestinal: Appendectomy, Cholecystectomy Musculoskeletal: Other Female Surgical History: Hysterectomy Other Surgical History: neck surgery - Social History Smoking Status: Current every day smoker How long have you smoked: 35+ Exposure to second hand smoke: Yes Alcohol Use: Socially Drug Use: none Patient Lives Alone: No Significant Family History: no pertinent family hx - Nursing Vital Signs Nursing Vital Signs: Initial Vital Signs Temperature 97.2 F 10/18/21 15:49 Pulse Rate 89 10/18/21 15:49 Respiratory Rate 19 10/18/21 15:49 Blood Pressure 114/86 10/18/21 15:49 O2 Sat by Pulse Oximetry 97 10/18/21 15:49 Pain Scale Pain Intensity 9 - Physical Exam General Appearance: no apparent distress, alert, anxiety Eye Exam: PERRL/EOMI, eyes nml inspection Ears, Nose, Throat Exam: normal ENT inspection, moist mucous membranes Neck Exam: normal inspection, non-tender, supple, full range of motion Respiratory Exam: normal breath sounds, lungs clear, airway intact, No chest tenderness, No respiratory distress Cardiovascular Exam: regular rate/rhythm, normal heart sounds, normal peripheral pulses Gastrointestinal/Abdomen Exam: soft, normal bowel sounds, No tenderness Pelvic Exam: not done Rectal Exam: not done Back Exam: normal inspection, normal range of motion, No CVA tenderness, No vertebral tenderness Extremity Exam: normal inspection, normal range of motion, pelvis stable Neurologic Exam: alert, oriented x 3, cooperative, direct service provider II-XII nml as tested, normal mood/affect, nml cerebellar function, nml station & gait, sensation nml Skin Exam: normal color, warm, dry Lymphatic Exam: No adenopathy SpO2 Interpretation: normal O2 Delivery: Room Air - Course Nursing assessment & vital signs reviewed: Yes Ordered Tests: Active Orders 24 hr Category Date Time Status IV Insertion STAT Care 10/18/21 16:09 Active ABDOMEN AND PELVIS W/0 CONTRAS [CT] Stat Exams 10/18/21 16:10 Completed AMYLASE Stat Lab 10/18/21 16:28 Completed CBC W DIFF Stat Lab 10/18/21 16:28 Completed CMP Stat Lab 10/18/21 16:28 Completed LIPASE Stat Lab 10/18/21 16:28 Completed Lactic Acid Stat Lab 10/18/21 16:09 Completed [place] Screen Stat Lab 10/18/21 Completed UA W/RFX CULTURE Stat Lab 10/18/21 16:28 Completed Medication Summary Generic Name Dose Route Start Last Admin Trade Name Freq PRN Reason Stop Dose Admin Sodium Chloride 1,000 mls @ 999 mls/hr 10/18/21 17:05 10/18/21 17:27 Sodium Chloride 0.9% 1000 Ml IV 10/18/21 18:05 999 mls/hr .Q1H1M STA Administration Discontinued Medications Generic Name Dose Route Start Last Admin Trade Name Freq PRN Reason Stop Dose Admin Sodium Chloride 1,000 mls @ 999 mls/hr 10/18/21 16:09 10/18/21 17:21 Sodium Chloride 0.9% 1000 Ml IV 10/18/21 17:09 Infused .Q1H1M STA Infusion Sodium Chloride Confirm 10/18/21 16:12 Sodium Chloride 0.9% 1000 Ml Administered 10/18/21 16:13 Dose 1,000 mls @ ud .ROUTE .STK-MED ONE Sodium Chloride Confirm 10/18/21 17:26 Sodium Chloride 0.9% 1000 Ml Administered 10/18/21 17:27 Dose 1,000 mls @ ud .ROUTE .STK-MED ONE Ondansetron HCl 4 mg 10/18/21 16:09 10/18/21 16:16 Ondansetron Hcl 4 Mg/2 Ml Vial IV 10/18/21 16:10 4 mg STAT ONE Administration Ondansetron HCl Confirm 10/18/21 16:12 Ondansetron Hcl 4 Mg/2 Ml Vial Administered 10/18/21 16:13 Dose 4 mg .ROUTE .STK-MED ONE Lab/Rad Data: Laboratory Result Diagrams 10/18/21 16:28 10/18/21 16:28 Laboratory Results 10/18/21 10/18/21 10/18/21 Range/Units Unknown 16:51 16:28 WBC (4.0-10.5) K/mm3 RBC (4.1-5.4) M/mm3 Hgb (12.0-16.0) gm/dl Hct (35-47) % MCV (78-100) fl MCH (26-32) pg MCHC (32-36) g/dl RDW (11.5-14.0) % Plt Count (150-450) K/mm3 MPV (7.5-11.0) fl Gran % (36.0-66.0) % Eos # (Auto) (0-0.5) Absolute Lymphs (auto) (1.0-4.6) Absolute Monos (auto) (0.0-1.3) Lymphocytes % (24.0-44.0) % Monocytes % (0.0-12.0) % Eosinophils % (0.00-5.0) % Basophils % (0.0-0.4) % Absolute Granulocytes (1.4-6.9) Basophils # (0-0.4) Sodium (137-145) mmol/L Potassium (3.5-5.1) mmol/L Chloride (98-107) mmol/L Carbon Dioxide (22-30) mmol/L Anion Gap (5-15) MEQ/L BUN (7-17) mg/dL Creatinine (0.52-1.04) mg/dL Estimated GFR ML/MIN Glucose (74-106) mg/dL Lactic Acid (0.4-2.0) Calcium (8.4-10.2) mg/dL Total Bilirubin (0.2-1.3) mg/dL AST (14-36) U/L ALT (0-35) U/L Alkaline Phosphatase (38-126) U/L Serum Total Protein (6.3-8.2) g/dL Albumin (3.5-5.0) g/dL Amylase (30-110) U/L Lipase (23-300) U/L Urinalys Dipstick Clnc MAIN LAB Urine Color YELLOW (YELLOW) Urine Appearance CLEAR (CLEAR) Urine pH 6.0 (5-6) Ur Specific [place] >=1.030 (1.005-1.025) POC Urine Protein Conf TRACE (Negative) Urine Ketones NEGATIVE (NEGATIVE) Urine Nitrite NEGATIVE (NEGATIVE) Urine Bilirubin NEGATIVE (NEGATIVE) Urine Urobilinogen 0.2 (0-1) mg/dL Urine Leukocytes NEGATIVE (NEGATIVE) Urine WBC (Auto) 3-5 (0-5) /HPF Urine RBC (Auto) 3-5 (0-2) /HPF U Hyaline Cast (Auto) 6-10 (0-2) /LPF U Epithel Cells (Auto) RARE (FEW) /HPF Urine Bacteria (Auto) RARE (NEGATIVE) /HPF Urine RBC NEGATIVE (0-5) Ilto/ul Urine Mucus (Auto) MANY (NEGATIVE) /HPF Ur Culture Indicated? NO Urine Glucose NEGATIVE (NEGATIVE) mg/dL Monoscreen NEGATIVE (Negative) Influenza Type A Ag NEGATIVE (NEGATIVE) Influenza Type B Ag NEGATIVE (NEGATIVE) RSV (PCR) NEGATIVE (Negative) SARS-CoV-2 (PCR) NEGATIVE (NEGATIVE) 10/18/21 10/18/21 10/18/21 Range/Units 16:28 16:28 16:09 WBC 8.8 (4.0-10.5) K/mm3 RBC 4.57 (4.1-5.4) M/mm3 Hgb 14.9 (12.0-16.0) gm/dl Hct 45.8 (35-47) % MCV 100.2 H (78-100) fl MCH 32.6 H (26-32) pg MCHC 32.5 (32-36) g/dl RDW 12.7 (11.5-14.0) % Plt Count 376 (150-450) K/mm3 MPV 9.2 (7.5-11.0) fl Gran % 54.3 (36.0-66.0) % Eos # (Auto) 0.21 (0-0.5) Absolute Lymphs (auto) 2.97 (1.0-4.6) Absolute Monos (auto) 0.82 (0.0-1.3) Lymphocytes % 33.7 (24.0-44.0) % Monocytes % 9.3 (0.0-12.0) % Eosinophils % 2.4 (0.00-5.0) % Basophils % 0.3 (0.0-0.4) % Absolute Granulocytes 4.78 (1.4-6.9) Basophils # 0.03 (0-0.4) Sodium 138 (137-145) mmol/L Potassium 4.2 (3.5-5.1) mmol/L Chloride 105 (98-107) mmol/L Carbon Dioxide 26 (22-30) mmol/L Anion Gap 11.7 (5-15) MEQ/L BUN 14 (7-17) mg/dL Creatinine 0.88 (0.52-1.04) mg/dL Estimated GFR > 60.0 ML/MIN Glucose 93 (74-106) mg/dL Lactic Acid 0.9 (0.4-2.0) Calcium 9.2 (8.4-10.2) mg/dL Total Bilirubin 0.60 (0.2-1.3) mg/dL AST 26 (14-36) U/L ALT 13 (0-35) U/L Alkaline Phosphatase 74 (38-126) U/L Serum Total Protein 7.2 (6.3-8.2) g/dL Albumin 4.3 (3.5-5.0) g/dL Amylase 104 (30-110) U/L Lipase 88 (23-300) U/L Urinalys Dipstick Clnc Urine Color (YELLOW) Urine Appearance (CLEAR) Urine pH (5-6) Ur Specific [place] (1.005-1.025) POC Urine Protein Conf (Negative) Urine Ketones (NEGATIVE) Urine Nitrite (NEGATIVE) Urine Bilirubin (NEGATIVE) Urine Urobilinogen (0-1) mg/dL Urine Leukocytes (NEGATIVE) Urine WBC (Auto) (0-5) /HPF Urine RBC (Auto) (0-2) /HPF U Hyaline Cast (Auto) (0-2) /LPF U Epithel Cells (Auto) (FEW) /HPF Urine Bacteria (Auto) (NEGATIVE) /HPF Urine RBC (0-5) Lito/ul Urine Mucus (Auto) (NEGATIVE) /HPF Ur Culture Indicated? Urine Glucose (NEGATIVE) mg/dL Monoscreen (Negative) Influenza Type A Ag (NEGATIVE) Influenza Type B Ag (NEGATIVE) RSV (PCR) (Negative) SARS-CoV-2 (PCR) (NEGATIVE) - Progress Progress: improved, pain not gone completely, re-examined Progress Note: 10/18/21 17:09 CAT scan of the abdomen pelvis without contrast shows a few fluid-filled distended small bowel loops with fluid leveling. Ileus versus enteritis. No other acute intra-abdominal intrapelvic findings. 10/18/21 18:03 Medical decision making: This patient has ileus versus enteritis. She feels as though she may have had "food poisoning". The timing of her symptoms and the type of symptoms that she has could actually be food poisoning. However, to be complete we will make sure that she hydrates herself well and if she has persistent vomiting and diarrhea, she is to take the Zofran I will prescribe for her as well as the Flagyl oral antibiotic. Currently, patient states she is feeling much better after IV hydration. Counseled pt/family regarding: lab results, diagnosis, need for follow-up, rad results - Departure Departure Disposition: Home Clinical Impression: Enteritis Condition: Stable Critical Care Time: No Referrals: TEGAN ECHEVARRIA [Primary Care Provider] - Follow up/PCP as directed Additional Instructions: Drink plenty of clear liquids before advancing your diet slowly. Take your medication as prescribed. Return to the emergency department if your symptoms recur/worsen. Follow-up with your primary care provider if your symptoms persist. Prescriptions: Ondansetron ODT 4 MG [Zofran Odt 4 mg] 4 mg PO Q6H PRN PRN #10 tablet PRN Reason: Vomiting Metronidazole 500 mg [Flagyl 500 MG] 500 mg PO TID #21 tablet
[2021-10-18 15:56] VITALS: O2SAT 97
[2021-10-18] MEDS ORDERED: Zofran 4 MG/2 ML VIAL IV ONE (16:09)
[2021-10-18] MEDS ORDERED: Sodium Chloride 0.9% 1000 ML 1,000 ML IV STA ×2 (16:09→17:05)
[2021-10-18] MEDS ORDERED: Zofran 4 MG/2 ML VIAL ONE (16:12)
[2021-10-18] MEDS ORDERED: Sodium Chloride 0.9% 1000 ML 1,000 ML ONE ×2 (16:12→17:26)
[2021-10-18 16:45] LABS: ALBUMIN 4.3 g/dL (3.5-5.0); ALKALINE PHOSPHATASE 74 U/L (38-126); AMYLASE 104 U/L (30-110); ANION GAP 11.7 MEQ/L (5-15); BLOOD UREA NITROGEN 14 mg/dL (7-17); CHLORIDE 105 mmol/L (98-107); Calcium 9.2 mg/dL (8.4-10.2); Carbon Dioxide 26 mmol/L (22-30); Creatinine 1 0.88 mg/dL (0.52-1.04); EST GLOMERULAR FILTRATION RATE > 60.0 ML/MIN; Glucose 93 mg/dL (74-106); LIPASE 88 U/L (23-300); Potassium 4.2 mmol/L (3.5-5.1); SGOT/AST 26 U/L (14-36); SGPT/ALT 13 U/L (0-35); SODIUM 138 mmol/L (137-145); Total Protein 7.2 g/dL (6.3-8.2)
[2021-10-18 16:49] LABS: Bacteria RARE /HPF (NEGATIVE); Epithelial Cells RARE /HPF (FEW); Mucus MANY /HPF (NEGATIVE)
[2021-10-18 16:50] LABS: Absolute Neutrophil Ct (ANC) 4.78 (1.4-6.9); Basophil (Absolute #) 0.03 (0-0.4); Eosinophil % 2.4 % (0.00-5.0); Eosinophil (Absolute #) 0.21 (0-0.5); Hematocrit 45.8 % (35-47); Hemoglobin 14.9 gm/dl (12.0-16.0); Lymphocyte (Absolute #) 2.97 (1.0-4.6); Lymphocytes % 33.7 % (24.0-44.0); Mean Cell Volume 100.2 fl (78-100); Mean Corpuscular Hemoglobin 32.6 pg (26-32); Mean Corpuscular Hgb Concent. 32.5 g/dl (32-36); Mean Platelet Volume 9.2 fl (7.5-11.0); Monocyte (Absolute #) 0.82 (0.0-1.3); Monocytes % 9.3 % (0.0-12.0); Neutrophil % 54.3 % (36.0-66.0); Platelet Count 376 K/mm3 (150-450); Red Blood Count 4.57 M/mm3 (4.1-5.4); Red Cell Distribution Width 12.7 % (11.5-14.0); White Blood Count 8.8 K/mm3 (4.0-10.5)
--- NOTE | 2021-10-18 16:52 | XRAY ---
Indication: Abdomen pain. Nausea, vomiting, diarrhea. Multiple contiguous axial images obtained through the abdomen and pelvis without contrast. Comparison: August 22, 2019. Lung bases remain clear again with incidental right middle lobe calcified granuloma. Heart not enlarged. Noncontrasted stomach and bowel loops nonobstructed. A few left abdomen and pelvic small bowel loops are now mildly distended up to 3.5 cm with fluid leveling, ileus versus enteritis. Again appendectomy, cholecystotomy, and hysterectomy reported. No free fluid/air. Remaining liver, pancreas, spleen, adrenal glands, kidneys, ureters, and bladder are unremarkable for noncontrast exam. Again mild scattered aortoiliac calcification without AAA. Osseous structures intact. Impression: 1. A few fluid distended small bowel loops with fluid leveling, ileus versus enteritis. 2. Remaining CT abdomen/pelvis without contrast exam is negative.
[2021-10-18 16:53] LABS: Appearance CLEAR (CLEAR); Bilirubin NEGATIVE (NEGATIVE); Glucose NEGATIVE (NEGATIVE); Ketones NEGATIVE (NEGATIVE)
[2021-10-18 16:54] LABS: Dipstick done @ ? MAIN LAB; Nitrite NEGATIVE (NEGATIVE); Protein,Urine Dip TRACE (Negative); RBC NEGATIVE Ery/ul (0-5); Specific Gravity >=1.030 (1.005-1.025); Urobilinogen 0.2 mg/dL (0-1)
[2021-10-18 17:31] LABS: INFLUENZA A NEGATIVE (NEGATIVE); INFLUENZA B NEGATIVE (NEGATIVE); RESPIRATORY SYNCTIAL VIRUS NEGATIVE (Negative); SARS-CoV-2 Xpert Express NEGATIVE (NEGATIVE)
[2021-10-18 18:01] LABS: Urine Cultured Indicated? NO
[2021-10-18] MEDS ORDERED: Hydromorphone 1 mg/ml Injection IV ONE (18:15)
[2021-10-18] MEDS ORDERED: Hydromorphone 1 mg/ml Injection ONE (18:23)
[2021-10-18 18:40] VITALS: BP 105/69; PULSE 75
== END 2021-10-18 18:40 | disposition home or self-care (01) ==
LOC: ED 15:35
DX: K52.9 Noninfective gastroenteritis and colitis, unspecified (principal); R11.2 Nausea with vomiting, unspecified; R10.84 Generalized abdominal pain; E78.5 Hyperlipidemia, unspecified; K21.9 Gastro-esophageal reflux disease without esophagitis; Z79.891 Long term (current) use of opiate analgesic; Z79.899 Other long term (current) drug therapy; Z72.0 Tobacco use
CPT/HCPCS: 0241U; 36000; 36415; 74176; 80053; 81015; 82150; 83605; 83690; 85025; 86308; 96360; 96374; 96375; 99284; 96361; J1170; J2405

== ENCOUNTER 2022-03-12 13:54 | Day surgery (SDC) | payer MEDICARE ==
[2022-03-12] MEDS ORDERED: Marcaine Mpf 0.5% Vial 30 Ml IJ ONE (13:55)
[2022-03-12] MEDS ORDERED: XYLOCAINE-MPF 1% 5ML SDV IJ ONE (13:55)
[2022-03-12] MEDS ORDERED: Depo-Medrol 40 MG/ML IM ONE (13:55)
[2022-03-12] MEDS ORDERED: Versed 2 MG/2 ML Injection ONE (14:41)
[2022-03-12] MEDS ORDERED: Lactated Ringers 1,000 ML IV ONE (15:51)
[2022-03-12] MEDS ORDERED: DIPRIVAN 200 MG/20 ML IV ONE (15:54)
--- NOTE | 2022-03-12 19:18 | XRAY ---
Indication: Right L4-S1 RFA. Intraoperative fluoroscopy provided for 13 seconds. 4 digital spot image submitted for interpretation demonstrates posterior needle tips projecting over the expected right L4-S1 nerve roots. Correlate with intraoperative findings/report.
--- NOTE | 2022-03-12 19:34 | XRAY ---
13 seconds of fluoroscopy was used in surgery for a right L4-S1 RFA.
== END 2022-03-12 16:30 | disposition home or self-care (01) ==
LOC: SDC-PAIN 13:54
PROVIDERS: ATTEND Psychiatry & Neurology Pain Medicine
DX: M47.816 Spondylosis without myelopathy or radiculopathy, lumbar region (principal); Z79.899 Other long term (current) drug therapy
CPT/HCPCS: 64635; 64636; 72100; 77002; J1030; J2250; J2704

== ENCOUNTER 2022-03-19 13:45 | Day surgery (SDC) | payer MEDICARE ==
[2022-03-19] MEDS ORDERED: Depo-Medrol 40 MG/ML IM ONE (13:46)
[2022-03-19] MEDS ORDERED: XYLOCAINE-MPF 1% 5ML SDV IJ ONE (13:46)
[2022-03-19] MEDS ORDERED: Marcaine Mpf 0.5% Vial 30 Ml IJ ONE (13:46)
[2022-03-19] MEDS ORDERED: DIPRIVAN 200 MG/20 ML IV ONE (16:10)
--- NOTE | 2022-03-19 16:52 | XRAY ---
Indication: Left L4-S1 RFA. Intraoperative fluoroscopy provided for 17 seconds. 4 digital spot image submitted for interpretation images demonstrates posterior needle tips projecting over the expected left L4-S1 nerve roots. Correlate with intraoperative findings/report.
--- NOTE | 2022-03-19 16:56 | XRAY ---
17 seconds of fluoroscopy was used in surgery for a left L4-S1 RFA.
[2022-03-19] MEDS ORDERED: Lactated Ringers 1,000 ML IV ONE (17:40)
== END 2022-03-19 16:40 | disposition home or self-care (01) ==
LOC: SDC-PAIN 13:45
PROVIDERS: ATTEND Psychiatry & Neurology Pain Medicine
DX: M47.816 Spondylosis without myelopathy or radiculopathy, lumbar region (principal); Z79.899 Other long term (current) drug therapy
CPT/HCPCS: 64635; 64636; 72100; 77002; J1030; J2704

== ENCOUNTER 2022-07-16 12:24 | Day surgery (SDC) | payer MEDICARE ==
[2022-07-16] MEDS ORDERED: LIDOCAINE HCL 1% 50 MG/5 ML VL PF IJ ONE (12:25)
[2022-07-16] MEDS ORDERED: BUPIVACAINE 0.5% VIAL IJ ONE (12:25)
[2022-07-16] MEDS ORDERED: Depo-Medrol 40 MG/ML IM ONE (12:25)
[2022-07-16] MEDS ORDERED: DIPRIVAN 200 MG/20 ML IV ONE (14:46)
--- NOTE | 2022-07-16 15:16 | XRAY ---
Indication: Right C2-C4 RFA. Intraoperative fluoroscopy provided for 17 seconds. 3 digital spot image submitted for interpretation demonstrates posterior needle tips projecting over the expected right C2-C4 nerve roots. Correlate with intraoperative findings/report. Incidental C5-C6 fusion hardware.
--- NOTE | 2022-07-16 16:42 | XRAY ---
17 seconds of fluoroscopy was used in surgery for a right C2-C4 RFA.
[2022-07-16] MEDS ORDERED: Lactated Ringers 1,000 ML IV ONE (16:48)
== END 2022-07-16 15:25 | disposition home or self-care (01) ==
LOC: SDC-PAIN 12:24
PROVIDERS: ATTEND Psychiatry & Neurology Pain Medicine
DX: M47.812 Spondylosis without myelopathy or radiculopathy, cervical region (principal); Z79.899 Other long term (current) drug therapy
CPT/HCPCS: 64633; 64634; 72040; 77002; J1030; J2001; J2704

== ENCOUNTER 2023-04-22 15:33 | Day surgery (SDC) | payer MEDICARE ==
[2023-04-22] MEDS ORDERED: Decadron 4 MG INJ IV ONE (15:34)
[2023-04-22] MEDS ORDERED: Sodium Chloride 0.9(Preservative Free) 10 ML IJ ONE (15:34)
[2023-04-22] MEDS ORDERED: LIDOCAINE HCL 1% 50 MG/5 ML VL PF IJ ONE (15:34)
[2023-04-22] MEDS ORDERED: Lactated Ringers 1,000 ML IV ONE (19:07)
--- NOTE | 2023-04-22 20:57 | XRAY ---
Indication: Cervical MISSY. Intraoperative fluoroscopy provided for 28 seconds. 4 digital spot image submitted for interpretation demonstrates posterior needle tip projecting posterior to cervical thoracic junction. Small amount of contrast injected for needle tip placement. Correlate with intraoperative findings/report. Incidental C5-C6 fusion hardware.
--- NOTE | 2023-04-23 08:40 | XRAY ---
28 seconds of fluoroscopy was used in surgery for a cervical MISSY.
== END 2023-04-22 19:30 | disposition home or self-care (01) ==
LOC: SDC-PAIN 15:33
PROVIDERS: ATTEND Psychiatry & Neurology Pain Medicine
DX: M54.12 Radiculopathy, cervical region (principal)
CPT/HCPCS: 62321; 72040; 77003; J1100; J2001; Q9966

== ENCOUNTER 2023-07-15 09:04 | Day surgery (SDC) | payer MEDICARE ==
[2023-07-15] MEDS ORDERED: XYLOCAINE-MPF 1% 5ML SDV IJ ONE (09:05)
[2023-07-15] MEDS ORDERED: Sodium Chloride 0.9(Preservative Free) 10 ML IJ ONE (09:05)
[2023-07-15] MEDS ORDERED: Decadron 4 MG INJ IV ONE (09:05)
[2023-07-15] MEDS ORDERED: Lactated Ringers 1,000 ML IV ONE (12:28)
--- NOTE | 2023-07-15 14:41 | XRAY ---
Indication: Cervical MISSY. Intraoperative fluoroscopy provided 21 seconds. 2 digital spot images submitted for interpretation demonstrates posterior needle tip projecting posterior to cervical thoracic junction. Small amount of contrast injected for needle tip placement. Correlate with intraoperative findings/report. Incidental C5-C6 fusion hardware.
--- NOTE | 2023-07-15 15:09 | XRAY ---
21 seconds of fluoroscopy was used in surgery for a cervical MISSY.
== END 2023-07-15 12:28 | disposition home or self-care (01) ==
LOC: SDC-PAIN 09:04
PROVIDERS: ATTEND Psychiatry & Neurology Pain Medicine
DX: M54.12 Radiculopathy, cervical region (principal)
CPT/HCPCS: 62321; 72040; 77003; J1100; Q9966

== ENCOUNTER 2023-09-09 11:17 | Day surgery (SDC) | payer MEDICARE ==
[2023-09-09] MEDS ORDERED: BUPIVACAINE 0.5% VIAL IJ ONE (11:18)
[2023-09-09] MEDS ORDERED: Decadron 4 MG INJ IV ONE (11:18)
[2023-09-09] MEDS ORDERED: LIDOCAINE HCL 1% 50 MG/5 ML VL PF IJ ONE (11:18)
[2023-09-09] MEDS ORDERED: DIPRIVAN 200 MG/20 ML IV ONE (13:33)
[2023-09-09] MEDS ORDERED: Lactated Ringers 1,000 ML IV ONE (14:50)
--- NOTE | 2023-09-09 14:59 | XRAY ---
Indication: Right C2-C4 RFA. Intraoperative fluoroscopy provided for 15 seconds. 2 digital spot image submitted for interpretation demonstrates posterior needle tips projecting over expected right C2-C4 nerve roots. Correlate with intraoperative findings/report. Incidental C5-C6 fusion hardware.
--- NOTE | 2023-09-09 15:07 | XRAY ---
15 seconds of fluoroscopy was used in surgery for a right C2-C4 RFA.
== END 2023-09-09 14:13 | disposition home or self-care (01) ==
LOC: SDC-PAIN 11:17
PROVIDERS: ATTEND Psychiatry & Neurology Pain Medicine
DX: M47.812 Spondylosis without myelopathy or radiculopathy, cervical region (principal)
CPT/HCPCS: 64633; 64634; 72040; 77002; J1100; J2001; J2704

== ENCOUNTER 2023-09-13 20:01 | Emergency (ER) | payer MEDICARE ==
[2023-09-13 20:29] VITALS: TEMP 98.4
--- NOTE | 2023-09-13 20:46 | ERPHSYRPT ---
- History of Present Illness Time Seen by Provider: 09/13/23 20:34 Historian: patient Exam Limitations: no limitations Patient Subjective Stated Complaint: pt c/o diffuse abd pain and vomiting since thursday Triage Nursing Assessment: pt ambulatory from wheelchair to cot by self, at bedside, pt alert and oriented x3, skin pwd, pt c/o diffuse abd pain and vomiting since thursday, pt has hx of pancreatitis and small bowel obstruction x2, last oral intake was 2 hrs prior to arrival, last BM was 09/11/23, pt denies any fever Physician History: For the past 3 days pt has had generalized cramping abdominal pain 8/10 in severity, vomiting multiple times without blood and a mild frontal headache after vomiting. LBM was 2 days ago & wnl. Chest pain, shortness of air, fever all denied. Allergies/Adverse Reactions: codeine Allergy (Verified 09/13/23 20:28) Rash promethazine [From Phenergan] Allergy (Verified 09/13/23 20:16) morphine Adverse Reaction (Verified 09/13/23 20:16) Nausea Home Medications: Aspirin 81 mg PO DAILY 09/13/23 [History] Atorvastatin Calcium [Lipitor] 80 mg PO DAILY 09/13/23 [History] Esomeprazole Magnesium [Nexium 24Hr] 40 mg PO DAILY 09/13/23 [History] Famotidine [Pepcid] 20 mg PO DAILY 09/13/23 [History] Hydrocodone/Acetaminophen [Hydrocodone-Acetamin 7.5-325] 1 tab PO TID 09/13/23 [History] Isosorbide Dinitrate 30 mg PO DAILY 09/13/23 [History] buPROPion HCL [Wellbutrin Xl] 300 mg PO DAILY 09/13/23 [History] Hx Tetanus, Diphtheria Vaccination/Date Given: No (unkown) Hx Influenza Vaccination/Date Given: Yes Hx Pneumococcal Vaccination/Date Given: No Immunizations Up to Date: No Travel Risk - International Travel Have you traveled outside of the country in past 3 weeks: No - Emerging Infectious Disease Are you exhibiting symptoms associated with any current EIDs: Yes Symptoms: Abdominal Pain, Vomitting - Review of Systems Constitutional: No Fever Respiratory: No Dyspnea Cardiac: No Chest Pain Abdominal/Gastrointestinal: Abdominal Pain, Vomiting Genitourinary Symptoms: No Dysuria Neurological: Headache - Past Medical History Pertinent Past Medical History: Yes Neurological History: No Pertinent History ENT History: No Pertinent History Cardiac History: High Cholesterol Respiratory History: No Pertinent History Endocrine Medical History: No Pertinent History Musculoskeletal History: Arthritis GI Medical History: GERD, Pancreatitis, Other History: No Pertinent History Psycho-Social History: Depression Female Reproductive Disorders: Cervical Cancer Other Medical History: She notes she gets chip horse muscle spasms on the R side of neck and into jaw, SBO x2 - Past Surgical History Past Surgical History: Yes Neuro Surgical History: No Pertinent History Cardiac: No Pertinent History Respiratory: No Pertinent History Gastrointestinal: Appendectomy, Cholecystectomy Genitourinary: No Pertinent History Musculoskeletal: Other Female Surgical History: Hysterectomy Other Surgical History: neck surgery Significant Family History: no pertinent family hx - Social History Smoking Status: Current every day smoker How long have you smoked: 35+ Exposure to second hand smoke: Yes Alcohol Use: Socially Drug Use: none Patient Lives Alone: No - Nursing Vital Signs Nursing Vital Signs: Initial Vital Signs Temperature 98.4 F 09/13/23 20:17 Pulse Rate 101 H 09/13/23 20:17 Respiratory Rate 18 09/13/23 20:17 Blood Pressure 123/75 09/13/23 20:17 O2 Sat by Pulse Oximetry 95 09/13/23 20:17 Pain Scale Pain Intensity 5 - Physical Exam General Appearance: alert Eye Exam: PERRL/EOMI Ears, Nose, Throat Exam: TMs normal, pharynx normal Neck Exam: normal inspection Respiratory Exam: lungs clear Cardiovascular Exam: normal heart sounds Gastrointestinal/Abdomen Exam: soft, No normal bowel sounds (B.S. mildly hyperactive and normotonic) Back Exam: normal inspection Extremity Exam: No pedal edema Neurologic Exam: alert, cooperative Skin Exam: warm, dry SpO2 Interpretation: normal SpO2: 95 O2 Delivery: Room Air - Course Nursing assessment & vital signs reviewed: Yes - CT Exams Abdomen/Pelvis CT Interpretation: Tele-radiologist Report (No significant acute abnormality seen.) Ordered Tests: Active Orders 24 hr Category Date Time Status IV Insertion STAT Care 09/13/23 20:43 Active POCT Glucose Check STAT Care 09/13/23 22:41 Active ABDOMEN AND PELVIS W/0 CONTRAS [CT] Stat Exams 09/13/23 20:44 Completed AMYLASE Stat Lab 09/13/23 20:46 Completed CBC W DIFF Stat Lab 09/13/23 20:46 Completed CMP Stat Lab 09/13/23 20:46 Completed CULTURE,URINE Stat Lab 09/13/23 20:46 Received LIPASE Stat Lab 09/13/23 20:46 Completed MAGNESIUM Stat Lab 09/13/23 20:46 Completed UA W/RFX UR CULTURE Stat Lab 09/13/23 20:46 Completed Medication Summary Discontinued Medications Generic Name Dose Route Start Last Admin Trade Name Iarjq PRN Reason Stop Dose Admin Dextrose 25 ml 09/13/23 21:28 09/13/23 22:00 Dextrose 50%-Water 50 Ml Abboject IV 09/13/23 21:29 25 ml STAT ONE Administration Dextrose Confirm 09/13/23 21:57 Dextrose 50%-Water 50 Ml Abboject Administered 09/13/23 21:58 Dose 50 ml IV .STK-MED ONE Hydromorphone HCl 0.5 mg 09/13/23 20:43 09/13/23 20:54 Hydromorphone 1 Mg/1ml Inj IV 09/13/23 20:44 0.5 mg STAT ONE Administration Hydromorphone HCl Confirm 09/13/23 20:48 Hydromorphone 1 Mg/1ml Inj Administered 09/13/23 20:49 Dose 1 mg .ROUTE .STK-MED ONE Sodium Chloride 1,000 mls @ 999 mls/hr 09/13/23 20:43 09/13/23 21:52 Sodium Chloride 0.9% 1000 Ml IV 09/13/23 21:43 Infused .Q1H1M STA Infusion Sodium Chloride Confirm 09/13/23 20:48 Sodium Chloride 0.9% 1000 Ml Administered 09/13/23 20:49 Dose 1,000 mls @ ud .ROUTE .STK-MED ONE Ceftriaxone Sodium 1 gm in 100 mls @ 200 mls/hr 09/13/23 21:28 09/13/23 22:00 Rocephin 1 Gm / 100 Ml Nacl IV 09/13/23 21:57 200 ml/hr STAT ONE 200 mls/hr Administration Ceftriaxone Sodium Confirm 09/13/23 21:56 Rocephin 1 Gm / 100 Ml Nacl Administered 09/13/23 21:57 Dose 1 gm in 100 mls @ ud IV .STK-MED ONE Ondansetron HCl 4 mg 09/13/23 20:43 09/13/23 20:51 Ondansetron Hcl 4 Mg/2 Ml Vial IV 09/13/23 20:44 4 mg STAT ONE Administration Ondansetron HCl Confirm 09/13/23 20:48 Ondansetron Hcl 4 Mg/2 Ml Vial Administered 09/13/23 20:49 Dose 4 mg .ROUTE .K-MED ONE Lab/Rad Data: Laboratory Result Diagrams 09/13/23 20:46 09/13/23 20:46 Laboratory Results 09/13/23 09/13/23 09/13/23 Range/Units 20:46 20:46 20:46 WBC (4.0-10.5) x10^3/uL RBC (4.1-5.4) x10^6/uL Hgb (12.0-16.0) g/dL Hct (35-47) % MCV (78-100) fL MCH (26-32) pg MCHC (32-36) g/dL RDW (11.5-14.0) % Plt Count (150-450) x10^3/uL MPV (7.5-11.0) fL Gran % (36.0-66.0) % Immature Gran % (Auto) (0.00-0.4) % Nucleat RBC Rel Count (0.00-0.1) % Eos # (Auto) (0-0.5) x10^3/uL Immature Gran # (Auto) (0.00-0.03) x10^3u/L Absolute Lymphs (auto) (1.0-4.6) x10^3/uL Absolute Monos (auto) (0.0-1.3) x10^3/uL Absolute Nucleated RBC (0.00-0.01) x10^3u/L Lymphocytes % (24.0-44.0) % Monocytes % (0.0-12.0) % Eosinophils % (0.00-5.0) % Basophils % (0.0-0.4) % Absolute Granulocytes (1.4-6.9) x10^3/uL Basophils # (0-0.4) x10^3/uL Sodium 137 (135-145) mmol/L Potassium 4.0 (3.5-5.1) mmol/L Chloride 104 (98-107) mmol/L Carbon Dioxide 20 L (22-30) mmol/L Anion Gap 15.9 H (5-15) MEQ/L BUN 20 H (7-17) mg/dL Creatinine 0.86 (0.52-1.04) mg/dL Estimated GFR 79.2 ML/MIN Glucose 69 L (74-106) mg/dL Calcium 9.9 (8.4-10.2) mg/dL Magnesium 2.1 (1.6-2.3) mg/dL Total Bilirubin 0.70 (0.2-1.3) mg/dL AST 32 (14-36) U/L ALT 25 (0-35) U/L Alkaline Phosphatase 96 (38-126) U/L Serum Total Protein 8.0 (6.3-8.2) g/dL Albumin 4.5 (3.5-5.0) g/dL Amylase 114 H (30-110) U/L Lipase 109 (23-300) U/L Urine Color Yellow (Yellow) Urine Appearance Clear (Clear) Urine pH 6.0 (4.6-8.0) Ur Specific [place] >=1.030 A (1.005-1.030) Urine Protein Trace A (Negative) Urine Glucose (UA) Negative (Negative) mg/dL Urine Ketones >=160 A (Negative) Urine Blood Trace (Negative) Urine Nitrite Negative (Negative) Urine Bilirubin Negative (Negative) Urine Urobilinogen 1.0 A (0.2) mg/dL Ur Leukocyte Esterase Trace A (Negative) U Hyaline Cast (Auto) NONE SEEN (0-2) /LPF Urine Microscopic RBC 6-10 A (0-5) /HPF Urine Microscopic WBC 3-5 (0-5) /HPF Ur Epithelial Cells Moderate A (None Seen) /HPF Urine Bacteria Moderate A (None Seen) /HPF Urine Culture Reflexed YES (NO) 09/13/23 Range/Units 20:46 WBC 10.9 H (4.0-10.5) x10^3/uL RBC 5.03 (4.1-5.4) x10^6/uL Hgb 16.1 H (12.0-16.0) g/dL Hct 48.8 H (35-47) % MCV 97.0 (78-100) fL MCH 32.0 (26-32) pg MCHC 33.0 (32-36) g/dL RDW 11.9 (11.5-14.0) % Plt Count 383 (150-450) x10^3/uL MPV 8.9 (7.5-11.0) fL Gran % 53.4 (36.0-66.0) % Immature Gran % (Auto) 0.3 (0.00-0.4) % Nucleat RBC Rel Count 0.0 (0.00-0.1) % Eos # (Auto) 0.30 (0-0.5) x10^3/uL Immature Gran # (Auto) 0.03 (0.00-0.03) x10^3u/L Absolute Lymphs (auto) 3.69 (1.0-4.6) x10^3/uL Absolute Monos (auto) 0.99 (0.0-1.3) x10^3/uL Absolute Nucleated RBC 0.00 (0.00-0.01) x10^3u/L Lymphocytes % 33.8 (24.0-44.0) % Monocytes % 9.1 (0.0-12.0) % Eosinophils % 2.7 (0.00-5.0) % Basophils % 0.7 (0.0-0.4) % Absolute Granulocytes 5.82 (1.4-6.9) x10^3/uL Basophils # 0.08 (0-0.4) x10^3/uL Sodium (135-145) mmol/L Potassium (3.5-5.1) mmol/L Chloride (98-107) mmol/L Carbon Dioxide (22-30) mmol/L Anion Gap (5-15) MEQ/L BUN (7-17) mg/dL Creatinine (0.52-1.04) mg/dL Estimated GFR ML/MIN Glucose (74-106) mg/dL Calcium (8.4-10.2) mg/dL Magnesium (1.6-2.3) mg/dL Total Bilirubin (0.2-1.3) mg/dL AST (14-36) U/L ALT (0-35) U/L Alkaline Phosphatase (38-126) U/L Serum Total Protein (6.3-8.2) g/dL Albumin (3.5-5.0) g/dL Amylase (30-110) U/L Lipase (23-300) U/L Urine Color (Yellow) Urine Appearance (Clear) Urine pH (4.6-8.0) Ur Specific [place] (1.005-1.030) Urine Protein (Negative) Urine Glucose (UA) (Negative) mg/dL Urine Ketones (Negative) Urine Blood (Negative) Urine Nitrite (Negative) Urine Bilirubin (Negative) Urine Urobilinogen (0.2) mg/dL Ur Leukocyte Esterase (Negative) U Hyaline Cast (Auto) (0-2) /LPF Urine Microscopic RBC (0-5) /HPF Urine Microscopic WBC (0-5) /HPF Ur Epithelial Cells (None Seen) /HPF Urine Bacteria (None Seen) /HPF Urine Culture Reflexed (NO) - Progress Progress: improved Counseled pt/family regarding: lab results, diagnosis, need for follow-up, rad results Medical Desision Making - Diagnostic Testing Diagnostic test were ordered, analyzed, and reviewed by me: Yes Radiological Interpretation: Teleradiologist Report - Departure Departure Disposition: Home Clinical Impression: Abdominal pain, Vomiting, UTI (urinary tract infection) Condition: Stable Critical Care Time: No Referrals: TEGAN ECHEVARRIA [Primary Care Provider] - Follow up/PCP as directed Instructions: Urinary Tract Infection, Adult (DC), Nausea and Vomiting, Adult (DC) Additional Instructions: Follow up with private doctor tomorrow. Forms: Work/School Release Form Prescriptions: Ondansetron ODT 4 MG [Zofran Odt 4 mg] 4 mg PO Q6H PRN PRN #10 tablet PRN Reason: Nausea
[2023-09-13] MEDS ORDERED: Hydromorphone 1 mg/ml Injection ONE (20:48)
[2023-09-13] MEDS ORDERED: Sodium Chloride 0.9% 1000 ML 1,000 ML ONE (20:48)
[2023-09-13] MEDS ORDERED: Zofran 4 MG/2 ML VIAL ONE (20:48)
[2023-09-13] MEDS: Sodium Chloride 0.9% 1000 ML 1,000 ML IV STA (20:51)
[2023-09-13] MEDS: Zofran 4 MG/2 ML VIAL IV ONE (20:51)
[2023-09-13] MEDS: Hydromorphone 1 mg/ml Injection IV ONE (20:54)
[2023-09-13 20:58] LABS: Absolute Neutrophil Ct (ANC) 5.82 x10^3/uL (1.4-6.9); BASOPHIL % 0.7 % (0.0-0.4); Basophil (Absolute #) 0.08 x10^3/uL (0-0.4); Eosinophil % 2.7 % (0.00-5.0); Hematocrit 48.8 % (35-47); Hemoglobin 16.1 g/dL (12.0-16.0); IMMATURE GRAN # 0.03 x10^3u/L (0.00-0.03); IMMATURE GRAN % 0.3 % (0.00-0.4); Lymphocyte (Absolute #) 3.69 x10^3/uL (1.0-4.6); Lymphocytes % 33.8 % (24.0-44.0); Mean Platelet Volume 8.9 fL (7.5-11.0); Monocyte (Absolute #) 0.99 x10^3/uL (0.0-1.3); Monocytes % 9.1 % (0.0-12.0); Neutrophil % 53.4 % (36.0-66.0); Platelet Count 383 x10^3/uL (150-450); Red Blood Count 5.03 x10^6/uL (4.1-5.4); Red Cell Distribution Width 11.9 % (11.5-14.0); White Blood Count 10.9 x10^3/uL (4.0-10.5)
[2023-09-13 21:04] LABS: Appearance Clear (Clear); Bacteria Moderate /HPF (None Seen); Bilirubin Negative (Negative); Blood Trace (Negative); Epithelial Cells Moderate /HPF (None Seen); Glucose, Urine Negative (Negative); Hyaline Casts NONE SEEN /LPF (0-2); Ketones >=160 (Negative); Leukocyte Esterase Trace (Negative); Nitrite Negative (Negative); Protein,Urine Dip Trace (Negative); Specific Gravity >=1.030 (1.005-1.030)
[2023-09-13 21:06] LABS: ADD URINE CULTURE? YES (NO)
[2023-09-13 21:10] VITALS: RESP 17
[2023-09-13 21:11] LABS: ALBUMIN 4.5 g/dL (3.5-5.0); ANION GAP 15.9 MEQ/L (5-15); BILIRUBIN,TOTAL 0.7 mg/dL (0.2-1.3); Calcium 9.9 mg/dL (8.4-10.2); Creatinine 1 0.86 mg/dL (0.52-1.04); EST GLOMERULAR FILTRATION RATE 79.2 ML/MIN
[2023-09-13] MEDS ORDERED: ROCEPHIN 1 GM / 100 ML NaCl 1 GM/100 ML IVPB IV ONE (21:56)
[2023-09-13] MEDS ORDERED: D50W 50 ml Abboject IV ONE (21:57)
--- NOTE | 2023-09-13 21:57 | XRAY ---
CLINICAL HISTORY: pain COMPARISON: None. TECHNIQUE: Axial CT scan of the abdomen and pelvis was performed without IV contrast, Coronal and sagittal reconstructive images were also obtained. One of the following dose reduction techniques were utilized for this exam: Automated exposure control, adjustment of the mA and/or kV according to patient size, use of iterative reconstruction FINDINGS: Limited organ parenchymal evaluation within the limitations of non-contrast study. Lung bases show a subpleural calcified nodule within the right middle lobe measuring approximately 5 mm in size. The liver is normal in size without focal parenchymal abnormality. The intrahepatic biliary radicals and the bile ducts are normal. Gallbladder is not seen, s/p cholecystectomy. The spleen, pancreas, adrenal glands are unremarkable. The kidneys are unremarkable. They are normal in size and shape. No calculi or hydronephrosis is seen. The ascending colon, the transverse colon, the descending colon, visualized small bowel loops are unremarkable. Mild focal dilatation of abdominal aorta adrenal level, measuring 23 mm in maximum caliber There is no evidence of significant enlargement of the mesenteric or retroperitoneal lymph nodes. The osseous structures in the lower rib cage and lumbar spine show no abnormality. The appendix is not visualized, please correlate with a previous surgical screw. There is no prominent inflammation findings within the right quadrant. There are a few small distal colon diverticuli without inflammation findings. Pelvis: The urinary bladder is unremarkable. The pelvic vasculature is unremarkable. No evidence of pelvic lymphadenopathy. IMPRESSION: 1. No significant acute abnormality seen. 2. Mild focal dilatation of abdominal aorta adrenal level, measuring 23 mm in maximum caliber Electronically Signed by: Ruben Ramos MD. (09/13/2023 21:52:53 EDT)
[2023-09-13] MEDS: ROCEPHIN 1 GM / 100 ML NaCl 1 GM/100 ML IVPB IV ONE (22:00)
[2023-09-13] MEDS: D50W 50 ml Abboject IV ONE (22:00)
[2023-09-13 23:15] VITALS: BP 109/67; PULSE 86; O2SAT 97
== END 2023-09-13 23:11 | disposition home or self-care (01) ==
LOC: ED 20:01
DX: N39.0 Urinary tract infection, site not specified (principal); R10.84 Generalized abdominal pain; R11.2 Nausea with vomiting, unspecified; E78.5 Hyperlipidemia, unspecified; Z79.891 Long term (current) use of opiate analgesic; Z79.899 Other long term (current) drug therapy; Z72.0 Tobacco use
CPT/HCPCS: 36000; 36415; 74176; 80053; 81001; 82150; 82947; 83690; 83735; 85025; 87086; 96365; 96374; 96375; 99284; J0696; J1170; J2405

== ENCOUNTER 2024-04-20 14:39 | Day surgery (SDC) | payer MEDICARE ==
[2024-04-20] MEDS ORDERED: Decadron 4 MG INJ IV ONE (14:40)
[2024-04-20] MEDS ORDERED: LIDOCAINE HCL 1% AMPUL 5 ML IJ ONE (14:40)
[2024-04-20] MEDS ORDERED: BUPIVACAINE 0.5% VIAL IJ ONE (14:40)
[2024-04-20] MEDS ORDERED: DIPRIVAN 200 MG/20 ML IV ONE (16:26)
--- NOTE | 2024-04-21 08:47 | XRAY ---
17 seconds of fluoroscopy was used in surgery for a right C2-C4 RFA.
== END 2024-04-20 17:10 | disposition home or self-care (01) ==
LOC: SDC-PAIN 14:39
PROVIDERS: ATTEND Psychiatry & Neurology Pain Medicine
DX: M47.812 Spondylosis without myelopathy or radiculopathy, cervical region (principal)
CPT/HCPCS: 72040; 77002; J1100; J2704

== ENCOUNTER 2024-10-19 11:15 | Day surgery (SDC) | payer MEDICARE ==
[2024-10-19] MEDS ORDERED: methylPREDNISolone acetate IM ONE (11:16)
[2024-10-19] MEDS ORDERED: BUPIVACAINE 0.5% VIAL IJ ONE (11:16)
[2024-10-19] MEDS ORDERED: propofoL IV ONE (13:48)
[2024-10-19] MEDS ORDERED: Lactated Ringers 1,000 ML IV ONE (14:36)
--- NOTE | 2024-10-19 16:31 | XRAY ---
Indication: Bilateral L4-S1 MBB. Intraoperative fluoroscopy provided for 8 seconds. Single digital spot image submitted for interpretation demonstrates posterior needle tips projecting over expected left and right L4-S1 nerve roots. Correlate with intraoperative findings/report.
--- NOTE | 2024-10-19 16:41 | XRAY ---
8 seconds of fluoroscopy was used in surgery for a bilateral L4-S1 MBB.
== END 2024-10-19 14:29 | disposition home or self-care (01) ==
LOC: SDC-PAIN 11:15
PROVIDERS: ATTEND Psychiatry & Neurology Pain Medicine
DX: M47.817 Spondylosis without myelopathy or radiculopathy, lumbosacral region (principal)
CPT/HCPCS: 64493; 64494; 72020; J1010; J2704